=== PATIENT | female | born 1950 | race Caucasian/White ===

== ENCOUNTER → 2016-08-07 | Outpatient (CLI) | payer MEDICAID | LOC: WI 08:16 | PROVIDERS: ATTEND Internal Medicine | DX: Z12.31 Encounter for screening mammogram for malignant neoplasm of breast (principal) | CPT/HCPCS: 77067; G0202 ==

== ENCOUNTER 2016-10-18 03:22 | Observation (INO) | payer MEDICAID, MEDICARE ==
[2016-10-18 03:47] LABS: ABSOLUTE BASOPHILS # (AUTO) 0.1 10^3/uL (0.0-0.2); ABSOLUTE EOSINOPHILS # (AUTO) 0.2 10^3/uL (0.0-0.6); ABSOLUTE LYMPHOCYTES (AUTO) 2.9 10^3/uL (0.5-4.7); ABSOLUTE MONOCYTES (AUTO) 0.7 10^3/uL (0.1-1.4); ABSOLUTE NEUT (AUTO) 3.9 10^3/uL (1.7-8.2); BASOPHILS % (AUTO) 1.3 % (0-2); EOSINOPHILS % (AUTO) 2.8 % (0-6); HEMATOCRIT 40.6 % (36.0-47.0); HEMOGLOBIN 13.8 g/dL (12.0-15.5); HGB HCT DIFFERENCE 0.8; LYMPHOCYTES % (AUTO) 36.9 % (13-45); MEAN CORPUSCULAR HEMOGLOBIN 30.5 pg (27.0-33.4); MEAN CORPUSCULAR VOLUME 90 fl (80-97); MONOCYTES % (AUTO) 9.4 % (3-13); RED BLOOD COUNT 4.54 10^6/uL (3.72-5.28); RED CELL DISTRIBUTION WIDTH 14.5 % (11.5-14.0); SEGMENTED NEUTROPHILS % (AUTO) 49.6 % (42-78); WHITE BLOOD COUNT 7.8 10^3/uL (4.0-10.5)
--- NOTE | 2016-10-18 03:59 | ER Document Report ---
ED General - General Chief Complaint: Chest Pain Stated Complaint: CHEST PAIN Time Seen by Provider: 10/18/16 03:25 Notes: 66-year-old female with medication- Controlled hypertension presents with an episode of low back pain which began as she was walking back from rolling of her truck windows. This was about an hour ago. The back pain soon turned into chest pain, which was dull and central and was accompanied by weakness and heaviness in her left arm greater than leg. This lasted about 20 minutes. The chest pressure and back pain are now gone but her left arm and leg still feel "funny." She describes as heaviness but no numbness tingling. No headache nausea vomiting. No history of this in the past. Currently chest pain-free. she was brought in by EMS and given aspirin prior to arrival. TRAVEL OUTSIDE OF THE [place] IN LAST 30 DAYS: No Past Medical History - General Information source: Patient - Social History Smoking Status: Former Smoker Family History: Reviewed & Not Pertinent - Past Medical History Cardiac Medical History: Reports: Hx Hypertension Review of Systems - Review of Systems Notes: REVIEW OF SYSTEMS GEN: Denies fever, chills, weight loss ENT: Denies sore throat, nasal discharge, ear pain EYES: Denies blurry vision, eye pain, discharge CV: Chest pain RESP: Denies cough, shortness of breath, wheezing GI: Denies abdominal pain, nausea, vomiting, diarrhea MSK: Denies joint pain/swelling, edema, positive low back pain SKIN: Denies rash, skin lesions LYMPH: Denies swollen glands/lymph nodes NEURO: Denies headache, positive left arm and leg weakness PSYCH: Denies depression, suicidal or homicidal ideation PHYSICAL EXAMINATION General: No acute distress, well-nourished Head: Atraumatic, normocephalic ENT: Mouth normal, oropharynx moist, no exudates or tonsillar enlargement Eyes: Conjunctiva normal, pupils equal, lids normal Neck: No JVD, supple, no guarding CVS: Normal rate, regular rhythm, no murmurs Resp: No resp distress, equal and normal breath sounds bilaterally GI: Nondistended, soft, no tenderness to palpation, no rebound or guarding Ext: No deformities, no edema, normal range of motion in upper and lower ext Back: No CVA or midline TTP Skin: No rash, warm Lymphatic: No lymphadeopathy noted Neuro: Awake, alert. Face symmetric. GCS 15. Cranial nerves II through XII intact. No pronator drift. 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 Intact symmetric 5 out of 5 hip flexion, ankle plantar and dorsiflexion. Normal sensation in all 4 extremities. Physical Exam - Vital signs Vitals: Pulse Ox 100 10/18/16 03:29 Course - Re-evaluation Re-evalutation: 10/18/16 03:59 66-year-old female hypertensive former smoker presents with episode of back and chest pain now resolved accompanied by left arm and leg heaviness which she still feels, however I cannot "corroborate this on exam. Her stroke score is 0. She currently is chest pain-free and looks well with normal vitals. Differential for her issue most seriously would be an aortic dissection which I will rule out with CT. Secondarily acute coronary syndrome. Her EKG is nonischemic and unchanged from prior. I will send a troponin and consider a repeat. She will also receive a head CT. 10/18/16 04:43 On my read the CTs are normal and the labs have come back normal as well. The patient is still feeling slightly weak on the left. Her exam remains normal. 6 points Per the validation study, 6-7 points: High Risk 2-Day Stroke Risk: 8.1% 7-Day Stroke Risk: 11.7% 90-Day Stroke Risk: 17.8% Given her high TIA score and risk of future stroke, I would like to admit her to the hospital for further workup. 10/18/16 05:10 Still feeling slightly weak but exam is normal. CT is already negative. Discussed with Dr. Lanier who will admit. - Vital Signs Vital signs: Temp Pulse Resp BP Pulse Ox 98 F 75 15 152/79 H 99 10/18/16 03:41 10/18/16 03:41 10/18/16 04:01 10/18/16 04:01 10/18/16 04:33 - Laboratory Result Diagrams: 10/18/16 03:37 10/18/16 03:37 Laboratory results interpreted by me: 10/18/16 10/18/16 03:37 03:37 RDW 14.5 H Potassium 3.5 L Chloride 108 H - Diagnostic Test Radiology reviewed: Image reviewed, Reports reviewed - EKG Interpretation by Me EKG shows normal: Sinus rhythm When compared to previous EKG there are: No significant change - No significant ST or Twave changes Discharge - Discharge Clinical Impression: Left-sided weakness Chest pain, unspecified Qualifiers: Chest pain type: unspecified Qualified Code(s): R07.9 - Chest pain, unspecified Admitting Provider: Hospitalist Unit Admitted: IMCU Referrals: HEMANTH AL MD [Primary Care Provider] - Follow up as needed
[2016-10-18 04:02] LABS: ANION GAP 13 (5-19); BLOOD UREA NITROGEN 16 mg/dL (7-20); CALCIUM 9.6 mg/dL (8.4-10.2); CARBON DIOXIDE 23 mmol/L (22-30); CHLORIDE 108 mmol/L (98-107); CREATININE RESULT 0.63 mg/dL (0.52-1.25); GLUCOSE 95 mg/dL (75-110); POTASSIUM 3.5 mmol/L (3.6-5.0); SODIUM 143.7 mmol/L (137-145)
--- NOTE | 2016-10-18 04:51 | RADIOLOGY REPORT (SQ) ---
EXAM DESCRIPTION: CTA CHEST COMPLETED DATE/TIME: 10/18/2016 4:29 am REASON FOR STUDY: CP L arm pn, r/o dissection COMPARISON: CR, chest, 08/16/2014. TECHNIQUE: CT scan of the chest performed using helical scanning technique with dynamic intravenous contrast injection. Images reviewed with lung, soft tissue and bone windows. Reconstructed coronal and sagittal MPR images reviewed. Additional 3 dimensional post-processing performed to develop Maximal Intensity Projection images (HI P). All images stored on PACS. All CT scanners at this facility use dose modulation, iterative reconstruction, and/or weight based d osing when appropriate to reduce radiation dose to as low as reasonably achievable (ALARA). [facility]: Dose Right [facility]: CareDose [facility]: Dose Right [facility]: Teradose 4D [facility]: [employer] CONTRAST TYPE AND DOSE: 100 cc 5 Isovue 370. RENAL FUNCTION: Creatinine 0.6. RADIATION DOSE: 883 LIMITATIONS: None. FINDINGS: LUNGS AND PLEURA: Prominent interstitium. AORTA AND GREAT VESSELS: No aneurysm or dissection. Atherosclerosis. HEART: No pericardial effusion. PULMONARY ARTERIES: No emboli visualized in the main pulmonary arteries or the segmental branches. HILAR AND MEDIASTINAL STRUCTURES: No identified masses or abnormal nodes. HARDWARE: None in the chest. UPPER ABDOMEN: See separate report of the CT of the abdomen. THYROID AND OTHER SOFT TISSUES: No masses. No adenopathy. BONES: No acute or significant finding. 3D MIPS: Confirm above findings. OTHER: No other significant finding. IMPRESSION: No acute cardiopulmonary findings. NO PULMONARY EMBOLI. No CTA evidence of aortic diss ection or aneurysm, as queried. TECHNICAL DOCUMENTATION: JOB ID: [id number] Quality ID # 436: Final reports with documentation of one or more dose reduction techniques (e.g., Au tomated exposure control, adjustment of the mA and/or kV according to patient size, use of iterative reconstruction technique) 2010 [employer]- All Rights Reserved
--- NOTE | 2016-10-18 04:55 | RADIOLOGY REPORT (SQ) ---
EXAM DESCRIPTION: CTA ABDOMEN/PELVIS W WO COMPLETED DATE/TIME: 10/18/2016 4:29 am REASON FOR STUDY: r/o dissection COMPARISON: None. TECHNIQUE: CT scan of the abdominal aorta extending to the iliac bifurcation performed with and with out intravenous contrast using helical scanning technique with dynamic intravenous contrast injection . Images reviewed with lung, soft tissue, and bone windows. Reconstructed coronal and sagittal MPR im ages reviewed. All images stored on PACS. Advanced 3D imaging as volume rendering, MIPS, SSD performed? yes All CT scanners at this facility use dose modulation, iterative reconstruction, and/or weight based d osing when appropriate to reduce radiation dose to as low as reasonably achievable (ALARA). [facility]: Dose Right [facility]: CareDose [facility]: Dose Right [facility]: Teradose 4D [facility]: [employer] CONTRAST TYPE AND DOSE: contrast/concentration: Isovue 370.00 mg/ml; Total Contrast Delivered: 100.0 ml; Total Saline Delivered: 90.0 ml RENAL FUNCTION: Creatinine 0.6. LIMITATIONS: None. FINDINGS: NON-CONTRASTED IMAGING: No significant renal or bladder calcifications. No other significa nt organ calcifications. POST-CONTRAST IMAGING: AORTA AND VESSELS: No aneurysm. No dissection. Renal arteries, SMA, celiac without stenosis. Mild at herosclerosis. LUNG BASES: No significant findings. No nodules or infiltrates. LIVER: Normal size. No masses or dilated ducts. SPLEEN: Normal size. No focal lesions. PANCREAS: No masses. No significant calcifications. No adjacent inflammation or peripancreatic fluid collections. Pancreatic duct not dilated. GALLBLADDER: No identified stones by CT criteria. No inflammatory changes to suggest cholecystitis. ADRENAL GLANDS: No significant masses or asymmetry. RIGHT KIDNEY AND URETER: No mass, calculi or urinary tract obstruction. LEFT KIDNEY AND URETER: No mass, calculi or urinary tract obstruction. RETROPERITONEUM: No retroperitoneal adenopathy, hemorrhage or masses. BOWEL AND PERITONEAL CAVITY: No masses or inflammatory changes. No free fluid or peritoneal masses. APPENDIX: Normal. ABDOMINAL WALL: No masses. No hernias. BONY STRUCTURES: No significant or acute findings. Moderate disc desiccation. 3-D IMAGING: Confirms the above findings. OTHER: No other significant finding. IMPRESSION: NO ABDOMINAL AORTIC ANEURYSM, DISSECTION OR SIGNIFICANT STENOSIS. NO SIGNIFICANT FINDING S IN THE ABDOMEN. TECHNICAL DOCUMENTATION: JOB ID: [id number] Quality ID # 436: Final reports with documentation of one or more dose reduction techniques (e.g., Au tomated exposure control, adjustment of the mA and/or kV according to patient size, use of iterative reconstruction technique) 2010 [employer]- All Rights Reserved
--- NOTE | 2016-10-18 04:57 | RADIOLOGY REPORT (SQ) ---
EXAM DESCRIPTION: CT HEAD WITHOUT COMPLETED DATE/TIME: 10/18/2016 4:29 am REASON FOR STUDY: Left arm greater than leg weakness COMPARISON: None. TECHNIQUE: Axial images acquired through the brain without intravenous contrast. Images reviewed wi th bone, brain and subdural windows. Images stored on PACS. All CT scanners at this facility use dose modulation, iterative reconstruction, and/or weight based d osing when appropriate to reduce radiation dose to as low as reasonably achievable (ALARA). [facility]: Dose Right [facility]: CareDose [facility]: Dose Right [facility]: Teradose 4D [facility]: [employer] RADIATION DOSE: Up-to-date CT equipment and radiation dose reduction techniques were employed. CTDIv ol: 64.6 mGy. DLP: 1163 mGy-cm. mGy. LIMITATIONS: None. FINDINGS: VENTRICLES: Normal size and contour. CEREBRUM: No masses. No hemorrhage. No midline shift. Normal reyna/white matter differentiation. N o evidence for acute infarction. CEREBELLUM: No masses. No hemorrhage. No alteration of density. No evidence for acute infarction. EXTRAAXIAL SPACES: No fluid collections. No masses. ORBITS AND GLOBE: No intra- or extraconal masses. Normal contour of globe without masses. CALVARIUM: No fracture. PARANASAL SINUSES: Moderate right sphenoid mucosal thickening. SOFT TISSUES: No mass or hematoma. OTHER: No other significant finding. IMPRESSION: Moderate right maxillary mucosal thickening. Otherwise unremarkable CT of the head. TECHNICAL DOCUMENTATION: JOB ID: [id number] Quality ID # 436: Final reports with documentation of one or more dose reduction techniques (e.g., Au tomated exposure control, adjustment of the mA and/or kV according to patient size, use of iterative reconstruction technique) 2010 [employer]- All Rights Reserved
--- NOTE | 2016-10-18 04:58 | RADIOLOGY REPORT (SQ) ---
EXAM DESCRIPTION: CHEST SINGLE VIEW COMPLETED DATE/TIME: 10/18/2016 4:34 am REASON FOR STUDY: cp COMPARISON: 08/16/2014. EXAM PARAMETERS: NUMBER OF VIEWS: One view. TECHNIQUE: Single frontal radiographic view of the chest acquired. RADIATION DOSE: NA LIMITATIONS: None. FINDINGS: LUNGS AND PLEURA: Mild chronic interstitial markings. MEDIASTINUM AND HILAR STRUCTURES: No masses. Contour normal. HEART AND VASCULAR STRUCTURES: Heart normal in size. Normal vasculature. BONES: No acute findings. HARDWARE: None in the chest. OTHER: No other significant finding. IMPRESSION: No acute cardiopulmonary findings. TECHNICAL DOCUMENTATION: JOB ID: [id number]
[2016-10-18 05:15] LABS: ADD ON TESTING BLD IN LAB ACKNOWLEDGE
[2016-10-18 05:23] LABS: PROTHROMBIN TIME 12.2 SEC (11.4-15.4)
[2016-10-18 05:24] LABS: PARTIAL THROMBOPLASTIN TIME 25.5 SEC (23.5-35.8)
[2016-10-18 05:29] LABS: ALANINE AMINOTRANSFERASE 25 U/L (9-52); ALBUMIN 4.2 g/dL (3.5-5.0); ALKALINE PHOSPHATASE 156 U/L (38-126); ASPARTATE AMINO TRANSFERASE 26 U/L (14-36); BILIRUBIN,DIRECT 0.3 mg/dL (0.0-0.4); BILIRUBIN,TOTAL 0.5 mg/dL (0.2-1.3); MAGNESIUM 1.9 mg/dL (1.6-2.3); TOTAL PROTEIN 7.5 g/dL (6.3-8.2)
[2016-10-18 05:30] LABS: ALCOHOL < 10 mg/dL (NONE DETECTED)
[2016-10-18 05:40] LABS: APPEARANCE,URINE CLEAR; BILIRUBIN,URINE NEGATIVE (NEGATIVE); GLUCOSE, URINE NEGATIVE (NEGATIVE); KETONES,URINE NEGATIVE (NEGATIVE); LEUKOCYTE ESTERASE,URINE NEGATIVE (NEGATIVE); NITRITE,URINE NEGATIVE (NEGATIVE); PROTEIN,URINE NEGATIVE (NEGATIVE); URINE SPECIFIC GRAVITY 1.003; UROBILINOGEN,URINE NEGATIVE mg/dL (<2.0)
[2016-10-18] MEDS ORDERED: ACETAMINOPHEN 325 MG TABLET PO PRN (06:12)
[2016-10-18] MEDS ORDERED: MAGNESIUM HYDROXIDE SUSP 30 ML UDCUP PO PRN (06:12)
[2016-10-18] MEDS ORDERED: PROMETHAZINE HCL 25 MG TABLET PO PRN (06:20)
[2016-10-18 06:23] LABS: ADD ON TESTING BLD IN LAB ACKNOWLEDGE
[2016-10-18] MEDS ORDERED: POTASSI CL 20 MEQ/50 ML RIDER 20 MEQ/50 ML RTUPB IV ONE (06:30)
[2016-10-18 06:39] LABS: CHOLESTEROL 144.92 mg/dL (0-200); Direct HDL 47 mg/dL (>40); TRIGLYCERIDES 233 mg/dL (<150)
--- NOTE | 2016-10-18 06:40 | PDOC H&P ---
History of Present Illness Admission Date/PCP: 10/18/16 05:25 HEMANTH AL food and nutrition professor Dr. johansen Patient complains of: Chest and lower back pain, left-sided numbness, weakness History of Present Illness: KATHARINE WORTHINGTON is a 66 year old female with underlying hypertension, hypothyroidism, mild hearing loss, arthritis, and mild anxiety and depression, without suicidal or homicidal ideation, who presents to the emergency room for evaluation of above complaints. Patient has been discussed with emergency room physician who evaluated the patient. Patient had seen a friend of hers earlier in the evening, having 2 alcoholic drinks. She did come home, fed her cats, and fell asleep on the couch. Was apparently awoken by phone call from a friend, stating that her truck windows were rolled down. She went outside and rolled up her truck windows, approximately an hour prior to presentation to the emergency room, and as she was walking back into the house, she developed lower back pain, which changed into dull central chest pain , with associated weakness and heaviness in her left arm and leg, arm greater than leg. This lasted about 20 minutes. Back pressure and chest pain resolved but she was still complaining of left arm and leg feeling "funny." Attempted to drive to the emergency room, but approximately snf there, the chest pain and back pain recurred. Stated that she felt like her heart was going to "beat out of my chest." She pulled over on the side of the road and called EMS. By the time she arrived in the emergency room, the chest and back pain had resolved and have not recurred. Still complaining of some slight numbness tingling and heaviness of her left upper and lower extremities. For the last 2 weeks, she has had occasional chest discomfort and palpitations. No prior such neurologic symptoms. Prior to this evening's events, no specific complaints including headache, chest or abdominal pain, nausea vomiting, fever chills, diarrhea or dysuria. Currently resting quietly, chest and back pain-free, but with still a slight "funny" sensation involving her left extremities. Dictation via voice recognition software. Laboratory results are listed in [employer] and are reviewed. X-ray summary results are listed below, with full report(s) reviewed. . EKG reviewed and compared to prior tracing from November [id number]. Social history/personal habits: Recently . Has an adult daughter. 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 Has never smoked. Occasional alcoholic drink. No illicit drug use. Allergies/adverse reactions are listed in [employer] and are reviewed. Home medications initially autopopulated into [facility] may not accurately reflect patient's true medications, dosages, and/or frequencies. photonics technician to reconcile medications. Unfortunately, patient not certain of all medications/dosages/frequencies. REVIEW OF SYSTEMS: Constitutional: No fever or chills. Eyes: Wears glasses. ENT: No swallowing problems or complaints. Partial hearing loss. Pulmonary: No current complaints. Cardiovascular: See history and present illness. Gastrointestinal: No current complaints, including nausea or vomiting. Skin: No current complaints, including rashes. Hematologic: Easy bruising. Neurologic: See history and present illness. Musculoskeletal: Intermittent joint pain from arthritis. See history and present illness. Psychiatric: Mild anxiety and depression. Denies suicidal or homicidal ideation. Endocrine: No current complaints, including polyuria. Genitourinary: No current complaints, including dysuria. PHYSICAL EXAMINATION: Female emergency room nurse Beulah is present. 5 feet 4 inches tall. 68.4 kg. BMI 25.9 kg/m. Blood pressure 137/93. Pulse 66 and regular. 99% saturation on room air. Respirations are 12 and unlabored. Temperature 98.2. Slightly overweight otherwise well-nourished well-developed though somewhat chronically ill-appearing female who appears a bit older than her stated age. Pleasant awake alert and cooperative. No obvious distress other than somewhat anxious. Skin is warm and dry. No grossly obvious evidence of rash in areas of skin examined. No subcutaneous nodules palpated. ENT: Hearing grossly normal to normal conversation. Tongue midline on protrusion pink and slightly tacky. Eyes: No scleral icterus. Pupils equal and reactive to light at 4 mm. [place] conjunctivae. Neck is supple and nontender to gentle active range of motion and palpation. Midline trachea. No palpable thyroid nodule mass enlargement or tenderness. Lymphatic: No palpable cervical or clavicular nodes. Neck and lymphatic exams limited by patient body habitus. Psychiatric: Reasonable insight into acute and chronic medical issues. Oriented to time location and why here. Lungs: Auscultation reveals clear and equal breath sounds bilaterally. No use of accessory respiratory muscles. Cardiovascular: Heart regular rate and rhythm, without gallop murmur or rub. No carotid or abdominal aortic bruits. No ankle or pedal edema. Faintly palpable dorsalis pedis pulses. Abdomen:soft slightly distended nontender with positive bowel sounds. Unable to adequately evaluate abdomen for masses or organomegaly due to distention. Extremities: Hands and feet are warm and dry. No calf tenderness to compression. No grossly obvious visual evidence of calf swelling. Gentle manipulation of upper and lower extremities fails to reveal any obvious evidence of injury or instability of involved major joints. Neurologic: Cranial Nerves II through XII are grossly intact. Light touch intact at face, right upper and lower extremities. Slight decreased light touch sensation, left upper and lower extremities. Motor function of major muscle groups right upper and lower extremities 5 over 5. 4/5 on the left upper and lower extremities. Patellar reflexes absent. Absent Babinski. No nystagmus. Past Medical History Cardiac Medical History: Reports: Hypertension Denies: Atrial Fibrillation, Congestive Heart Failure, Coronary Artery Disease, DVT, Myocardial Infarction, Hyperlipidema, Pulmonary Embolism Pulmonary Medical History: Denies: Asthma, Chronic Obstructive Pulmonary Disease (COPD), Sleep Apnea EENT Medical History: Reports: Eyes - Glasses, Ears - Partial hearing loss Denies: Throat Neurological Medical History: Denies: Hemorrhagic CVA, Ischemic CVA, Seizures Endocrine Medical History: Reports: Hypothyroidism Denies: Diabetes Mellitus Type 1, Diabetes Mellitus Type 2, Hyperthyroidism Renal/ Medical History: Reports: None GI Medical History: Reports: Other - "Stomach problems all my life" Denies: Cirrhosis, Gastroesophageal Reflux Disease, Hepatitis, Peptic Ulcer Disease Musculoskeltal Medical History: Reports: Arthritis Skin Medical History: Reports: None Psychiatric Medical History: Reports: Depression, General Anxiety Disorder Denies: Alcohol Dependency, Substance Abuse, Tobacco Dependency Hematology: Reports: Other - Easy bruising Infectious Medical History: Denies: Hepatitis B, Hepatitis C Past Surgical History Past Surgical History: Reports: Appendectomy, Cholecystectomy, Hysterectomy, Other - Laparoscopy 2. Social History Information Source: Patient, Emergency Med Personnel, [facility] Records Smoking Status: Never Smoker Frequency of Alcohol Use: Occasional Drugs: None - Advance Directive Resuscitation Status: Full Code Surrogate healthcare decision maker:: Erika Bautista Family History Family History: Reviewed & Not Pertinent Parental Family History Reviewed: Yes - Mother of stroke; father of lung cancer Children Family History Reviewed: Yes - Son with "many health problems " Sibling(s) Family History Reviewed.: Yes - Brother with drug problems Medication/Allergy Home Medications: Cholecalciferol (Vitamin D3) [Vitamin D3 2000 unit Tablet] 2,000 unit PO DAILY 10/18/16 Cyanocobalamin (Vitamin B-12) [Vitamin B-12] 500 mcg PO DAILY 10/18/16 Fluoxetine HCl 20 mg PO DAILY 10/18/16 Losartan/Hydrochlorothiazide [Hyzaar 100-25 Tablet] 1 each PO DAILY 10/18/16 Pantoprazole Sodium 40 mg PO DAILY 10/18/16 Aspirin [Ecotrin 325 mg EC Tablet] 325 mg PO DAILY tabec 10/19/16 Atorvastatin Calcium [Lipitor 80 mg Tablet] 40 mg PO DAILY #30 tablet 10/19/16 Levothyroxine Sodium [Synthroid 0.025 mg Tablet] 50 mcg PO DAILY #60 tablet Nifedipine [Nifedipine ER] 30 mg PO DAILY #30 tab.er.24 10/19/16 Allergies/Adverse Reactions: butorphanol [From Stadol] Allergy (Verified 10/18/16 06:18) nalbuphine [From Nubain] Allergy (Verified 10/18/16 06:18) Physical Exam Vital Signs: Temp Pulse Resp BP Pulse Ox 98.2 F 66 18 129/86 H 97 10/18/16 05:59 10/18/16 05:59 10/18/16 05:59 10/18/16 05:59 10/18/16 05:59 Results Impressions: Chest X-Ray 10/18/16 03:25 IMPRESSION: No acute cardiopulmonary findings. Abdomen/Pelvis CTA 10/18/16 03:34 IMPRESSION: NO ABDOMINAL AORTIC ANEURYSM, DISSECTION OR SIGNIFICANT STENOSIS. NO SIGNIFICANT FINDINGS IN THE ABDOMEN. Chest/Abdomen CTA 10/18/16 03:34 IMPRESSION: No acute cardiopulmonary findings. NO PULMONARY EMBOLI. No CTA evidence of aortic dissection or aneurysm, as queried. Head CT 10/18/16 03:59 IMPRESSION: Moderate right maxillary mucosal thickening. Otherwise unremarkable CT of the head. Assessment & Plan - Diagnosis (1) Acute focal neurological deficit Is this a current diagnosis for this admission?: YesPlan: Patient will be placed in observation bed admitted under CVA/TIA protocol. Multiple imaging procedures, intracranial, vascular, and cardiac. lipid panel. Permissive hypertension. Patient is a full code. I have strongly urged patient not to get out of bed without calling nursing staff, to avoid a fall with injury. Knee high SCDs for DVT prophylaxis, along with subcutaneous Lovenox. Impression and plans were discussed with patient, who concurs. Time spent in evaluation and management of patient: 68 minutes (2) Arm paresthesia, left Is this a current diagnosis for this admission?: Yes (3) Chest pain, unspecified Qualifiers: Chest pain type: unspecified Qualified Code(s): R07.9 - Chest pain, unspecified Is this a current diagnosis for this admission?: YesPlan: No outward evidence of acute coronary syndrome, but will trend troponins. Repeat EKG. (4) Hypokalemia Is this a current diagnosis for this admission?: YesPlan: Potassium replacement (5) Left hemiparesis Is this a current diagnosis for this admission?: Yes (6) Left leg paresthesias Is this a current diagnosis for this admission?: Yes (7) HTN (hypertension) Qualifiers: Hypertension type: essential hypertension Qualified Code(s): I10 - Essential (primary) hypertension Is this a current diagnosis for this admission?: YesPlan: Permissive hypertension (8) Hypothyroid Qualifiers: Hypothyroidism type: unspecified Qualified Code(s): E03.9 - Hypothyroidism, unspecified Is this a current diagnosis for this admission?: YesPlan: Resume home medications as appropriate once these have been determined and reviewed. - Time Time Spent: 50 to 70 Minutes Anticipated discharge: Home Within: within 48 hours
[2016-10-18 06:49] LABS: DIRECT LDL 44 mg/dL (<100)
[2016-10-18 06:51] LABS: VLDL CHOLESTEROL 46.6 mg/dL (10-31)
[2016-10-18] MEDS: ATORVASTATIN CALCIUM 80 MG TABLET PO SCH (11:57)
[2016-10-18] MEDS: DOCUSATE SODIUM 100 MG CAPSULE PO SCH ×2 (11:58→17:32)
[2016-10-18] MEDS: ENOXAPARIN SODIUM INJ 40 MG/0.4 ML DISP.SYRIN SUBCUT SCH (11:59)
[2016-10-18] MEDS: ASPIRIN 325 MG TABLET, ENT COATED PO SCH (11:59)
[2016-10-18] MEDS: POTASSI CL 20 MEQ/NS 1L 1,000 ML IV PRN (12:00)
--- NOTE | 2016-10-18 12:15 | RADIOLOGY REPORT (SQ) ---
EXAM DESCRIPTION: MRI HEAD WITHOUT COMPLETED DATE/TIME: 10/18/2016 11:47 am REASON FOR STUDY: tia vs cva E03.9 HYPOTHYROIDISM, UNSPECIFIED COMPARISON: None. TECHNIQUE: Multiplanar imaging includes non-contrasted T1, T2, FLAIR, and diffusion with ADC map seq uences. Images stored on PACS. LIMITATIONS: None. FINDINGS: ANATOMY: No anomalies. Normal vascular flow voids. Pituitary fossa normal. CSF SPACES: Normal in size and contour. No hemorrhage. CEREBRUM: Sulci and gyri normal in size and contour. Normal white matter signal on FLAIR imaging. No evidence of hemorrhage, mass, or extraaxial fluid collection. POSTERIOR FOSSA: No signal alteration. No hemorrhage. No edema, masses or mass effect. Internal iron tory canals, cerebello-pontine angles, mastoids normal. DIFFUSION IMAGING: Negative for acute or sub-acute infarction. ORBITS: No masses. Globes normal. PARANASAL SINUSES: Mucosal thickening right sphenoid sinus. OTHER: No other significant finding. IMPRESSION: Normal brain. EVIDENCE OF ACUTE STROKE: NO. TECHNICAL DOCUMENTATION: JOB ID: [id number] [employer]- All Rights Reserved
--- NOTE | 2016-10-18 12:17 | RADIOLOGY REPORT (SQ) ---
EXAM DESCRIPTION: MRA HEAD WITHOUT COMPLETED DATE/TIME: 10/18/2016 11:47 am REASON FOR STUDY: tia vs cva E03.9 HYPOTHYROIDISM, UNSPECIFIED COMPARISON: None. TECHNIQUE: Axial 3-D [id number]-[id number] acquisition imaging performed through the brain in the area of t he [place]. Images reformatted using 3-D MIPS. LIMITATIONS: None. FINDINGS: SOURCE IMAGES: No unexpected findings on source images. No large masses. 3-D MIP: No aneurysm. No occlusions. No significant stenosis. OTHER: No other significant finding. IMPRESSION: NORMAL MRA OF THE [place]. TECHNICAL DOCUMENTATION: JOB ID: [id number] [employer]- All Rights Reserved
--- NOTE | 2016-10-18 12:48 | RADIOLOGY REPORT (SQ) ---
EXAM DESCRIPTION: CAROTID DOPPLER COMPLETED DATE/TIME: 10/18/2016 12:39 pm REASON FOR STUDY: tia vs cva E03.9 HYPOTHYROIDISM, UNSPECIFIED COMPARISON: None. TECHNIQUE: Grayscale ultrasound, Doppler velocity and spectra, and color Doppler images acquired of the extra-cranial carotid and vertebral arteries. Images stored on PACS. LIMITATIONS: None. FINDINGS: RIGHT CAROTID CCA Velocities: Within normal limits. ICA Velocities Peak systolic 1.23 m/s. End diastolic 0.40 m/s. Proximal ICA/CCA peak systolic ratio 1.6. Spectra normal. No significant plaque. LEFT CAROTID CCA Velocities: Within normal limits. ICA Velocities Peak systolic 1.20 m/s. End diastolic 0.47 m/s. Proximal ICA/CCA peak systolic ratio 2.0. Spectra normal. No significant plaque. VERTEBRAL ARTERIES: Antegrade flow. Normal waveforms. SUBCLAVIAN ARTERIES: Not imaged. OTHER: No other significant finding. IMPRESSION: Less than 50% stenosis bilaterally. COMMENT: Quality ID #[id number]: Velocity criteria are extrapolated from the diameter data as defined by t he Society of Radiologists in Ultrasound Consensus Conference. Radiology 2003: 229; 340-346. TECHNICAL DOCUMENTATION: JOB ID: [id number] [employer]- All Rights Reserved
--- NOTE | 2016-10-18 15:19 | EKG REPORT ---
SEVERITY:- ABNORMAL ECG - SINUS RHYTHM LVH WITH SECONDARY REPOLARIZATION ABNORMALITY : Confirmed by: Annmarie Blanco MD 18-Oct-2016 15:19:02
[2016-10-19] MEDS: POTASSI CL 20 MEQ/NS 1L 1,000 ML IV PRN (01:41)
[2016-10-19 06:30] LABS: ANION GAP 6 (5-19); BLOOD UREA NITROGEN 13 mg/dL (7-20); CALCIUM 8.4 mg/dL (8.4-10.2); CARBON DIOXIDE 24 mmol/L (22-30); CHLORIDE 112 mmol/L (98-107); GLUCOSE 93 mg/dL (75-110); POTASSIUM 4.4 mmol/L (3.6-5.0); SODIUM 141.5 mmol/L (137-145)
[2016-10-19] MEDS: ATORVASTATIN CALCIUM 80 MG TABLET PO SCH (10:55)
[2016-10-19] MEDS: DOCUSATE SODIUM 100 MG CAPSULE PO SCH (10:55)
[2016-10-19] MEDS: ASPIRIN 325 MG TABLET, ENT COATED PO SCH (10:55)
[2016-10-19] MEDS: ENOXAPARIN SODIUM INJ 40 MG/0.4 ML DISP.SYRIN SUBCUT SCH (10:55)
--- NOTE | 2016-10-19 11:14 | EKG REPORT ---
SEVERITY:- ABNORMAL ECG - SINUS RHYTHM NONSPECIFIC T ABNORMALITIES, LATERAL LEADS : Confirmed by: Annmarie Blanco MD 19-Oct-2016 11:14:12
[2016-10-19 11:16] VITALS: BP 164/99
--- NOTE | 2016-10-19 15:12 | PDOC DISCHARGE SUMMARY ---
General - Admit/Disc Date/PCP Admission Date/Primary Care Provider: 10/18/16 06:12 HEMANTH AL Discharge Date: 10/19/16 - Discharge Diagnosis (1) TIA (transient ischemic attack) Is this a current diagnosis for this admission?: Yes (2) Chest pain, unspecified Is this a current diagnosis for this admission?: Yes (3) HTN (hypertension) Is this a current diagnosis for this admission?: Yes (4) Hypothyroid Is this a current diagnosis for this admission?: Yes (5) Dyslipidemia Is this a current diagnosis for this admission?: Yes - Additional Information Resuscitation Status: Full Code Discharge Diet: Cardiac Discharge Activity: Activity As Tolerated, Balance Activity w/Rest Home Medications: Cholecalciferol (Vitamin D3) [Vitamin D3 2000 unit Tablet] 2,000 unit PO DAILY 10/18/16 Cyanocobalamin (Vitamin B-12) [Vitamin B-12] 500 mcg PO DAILY 10/18/16 Fluoxetine HCl 20 mg PO DAILY 10/18/16 Losartan/Hydrochlorothiazide [Hyzaar 100-25 Tablet] 1 each PO DAILY 10/18/16 Pantoprazole Sodium 40 mg PO DAILY 10/18/16 Aspirin [Ecotrin 325 mg EC Tablet] 325 mg PO DAILY tabec 10/19/16 Atorvastatin Calcium [Lipitor 80 mg Tablet] 40 mg PO DAILY #30 tablet 10/19/16 Levothyroxine Sodium [Synthroid 0.025 mg Tablet] 50 mcg PO DAILY #60 tablet Nifedipine [Nifedipine ER] 30 mg PO DAILY #30 tab.er.24 10/19/16 Additional Information: Stress test as outpatient with primary care physician or Dr. Thompson History of Present Illness Patient complains of: Chest pain and numbness on LUE/LLE History of Present Illness: KATHARINE WORTHINGTON is a 66 year old female with underlying hypertension, hypothyroidism, mild hearing loss, arthritis, and mild anxiety and depression, without suicidal or homicidal ideation, who presents to the emergency room for evaluation of above complaints. Patient has been discussed with emergency room physician who evaluated the patient. Patient had seen a friend of hers earlier in the evening, having 2 alcoholic drinks. She did come home, felt her calves, and fell asleep on the couch. Was apparently awoken by phone call from a friend, stating that her truck windows were rolled down. She went outside and rolled off her truck when this, approximately an hour prior to presentation to the emergency room, and as she was walking back into the house, she developed lower back pain, which changed into dull central chest pain, with associated weakness and heaviness in her left arm and leg, arm greater than leg. This lasted about 20 minutes. Back pressure and chest pain resolved but she was still complaining of left arm and leg feeling "funny." Attempted to drive to the emergency room, but approximately skilled nursing, the chest pain and back pain recurred. Stated that she felt like her heart was going to "beat out of my chest." She pulled over on the side of the road and called EMS. By the time she arrived in the emergency room, the chest and back pain had resolved and had not recurred. Still complaining of some slight numbness tingling and heaviness of her left upper and lower extremities. For the last 2 weeks, she has had occasional chest discomfort and palpitations. No prior such neurologic symptoms. Prior to this evening's events, no specific complaints including headache, chest or abdominal pain, nausea vomiting, fever chills, diarrhea or dysuria. Currently resting quietly, chest and back pain-free, but was still a slight "funny" sensation involving her left extremities. Dictation via voice recognition software. Laboratory results are listed in [employer] and are reviewed. X-ray summary results are listed below, with full report(s) reviewed. . EKG reviewed and compared to prior tracing from November [id number]. Hospital Course Hospital Course: The patient was admitted to telemetry. Patient had initial CT scan of the brain which did not reveal any acute abnormality other than sinus mucosal thickening. Patient had an abdominal CT in the chest CT showing no embolism or dissection. Patient continues to have the numbness on the left upper extremity and left lower extremity but the chest pain resolved. Patient was patient was placed on antiplatelet therapy. Lipid panel was obtained and noted elevated triglycerides. Patient was started on Lipitor. Eventually she underwent carotid Doppler showing less than 50% stenosis bilaterally. Patient also had MRI of the brain which did not reveal any stroke, MRA of the [place] that was negative. The patient's symptoms eventually resolved. Patient reports no intense headache prior to the symptoms. Likely patient have underlying TIA therefore was advised for antiplatelet therapy with aspirin. In terms of the patient's chest pain cardiac enzymes were negative for myocardial infarction. Patient was advised to have a stress test done on an outpatient basis with primary care physician or Dr. Thompson. Physical Exam Vital Signs: Temp Pulse Resp BP Pulse Ox 98.8 F 59 L 14 164/99 H 100 10/19/16 11:13 10/19/16 12:00 10/19/16 12:00 10/19/16 12:00 10/19/16 12:00 Intake & Output 10/18/16 10/19/16 10/20/16 06:59 06:59 06:59 Intake Total 3656 Output Total 2500 Balance 1156 General appearance: PRESENT: no acute distress, cooperative Head exam: PRESENT: normocephalic Eye exam: PRESENT: EOMI Mouth exam: PRESENT: moist, neck supple Neck exam: ABSENT: JVD Respiratory exam: PRESENT: clear to auscultation vaughn, unlabored. ABSENT: rhonchi, wheezes Cardiovascular exam: PRESENT: RRR. ABSENT: gallop GI/Abdominal exam: PRESENT: diminished bowel sounds, soft. ABSENT: tenderness Extremities exam: ABSENT: pedal edema Neurological exam: PRESENT: alert, awake, oriented to person, oriented to place , oriented to time, oriented to situation Skin exam: PRESENT: dry, warm. ABSENT: cyanosis Results Laboratory Results: 10/19/16 05:54 10/19/16 05:54 Sodium 141.5 Potassium 4.4 Chloride 112 H Carbon Dioxide 24 Anion Gap 6 BUN 13 Creatinine 0.60 Est GFR ( Amer) > 60 Est GFR (Non-Af Amer) > 60 Glucose 93 Calcium 8.4 10/18/16 10/18/16 09:40 15:45 Troponin I < 0.012 < 0.012 Impressions: Head MRI 10/18/16 00:00 IMPRESSION: Normal brain. EVIDENCE OF ACUTE STROKE: NO. Chest X-Ray 10/18/16 03:25 IMPRESSION: No acute cardiopulmonary findings. Abdomen/Pelvis CTA 10/18/16 03:34 IMPRESSION: NO ABDOMINAL AORTIC ANEURYSM, DISSECTION OR SIGNIFICANT STENOSIS. NO SIGNIFICANT FINDINGS IN THE ABDOMEN. Chest/Abdomen CTA 10/18/16 03:34 IMPRESSION: No acute cardiopulmonary findings. NO PULMONARY EMBOLI. No CTA evidence of aortic dissection or aneurysm, as queried. Head CT 10/18/16 03:59 IMPRESSION: Moderate right maxillary mucosal thickening. Otherwise unremarkable CT of the head. Brain MRI with MRA 10/18/16 06:18 IMPRESSION: NORMAL MRA OF [place]. Carotid Doppler Study 10/18/16 06:18 IMPRESSION: Less than 50% stenosis bilaterally. Qualifiers PATEINT BEING DISCHARGED WITH ANY OF THE FOLLOWING DIAGNOSIS?: No Plan Discharge Plan: Follow up w/ primary physician in 1 week. Time Spent: Less than 30 Minutes
== END 2016-10-19 13:25 | disposition home or self-care (01) ==
LOC: ER 03:22 → UNDOADMIN 05:25 → EH 05:25 → INTOOBSV 06:12 → 3S 06:15 → EH 06:15
PROVIDERS: ADMIT Family Medicine; ATTEND Family Medicine
DX: G45.9 Transient cerebral ischemic attack, unspecified (principal); R07.89 Other chest pain; I10 Essential (primary) hypertension; E03.9 Hypothyroidism, unspecified; E78.5 Hyperlipidemia, unspecified; E87.6 Hypokalemia; I65.23 Occlusion and stenosis of bilateral carotid arteries; M19.90 Unspecified osteoarthritis, unspecified site; H91.90 Unspecified hearing loss, unspecified ear; Z79.899 Other long term (current) drug therapy; Z79.82 Long term (current) use of aspirin; Z90.49 Acquired absence of other specified parts of digestive tract; Z82.3 Family history of stroke; Z80.1 Family history of malignant neoplasm of trachea, bronchus and lung; Z87.891 Personal history of nicotine dependence
CPT/HCPCS: 93005 ×2; 99285; 36415 ×2; 84439; 80307; 83735; 84443; 85025; 85610; 85730; 80076; 80048 ×2; 81001; 84484; 80061; 93880; 70551; 70544; 71010; 70450; 71275; 74174; 93010; 97163; G0378 ×3; A9270 ×6; J1650 ×2; J3490; J3480 ×3; G8978; G8979

== ENCOUNTER → 2016-12-26 | Outpatient (CLI) | payer MEDICAID ==
--- NOTE | 2016-12-26 15:44 | RADIOLOGY REPORT (SQ) ---
EXAM DESCRIPTION: LUMBAR SPINE COMPLETE COMPLETED DATE/TIME: 12/26/2016 1:40 pm REASON FOR STUDY: LUMBAGO WITH SCIATICA, UNSPECIFIED SIDE M54.40 LUMBAGO WITH SCIATICA, UNSPECIFIED SIDE COMPARISON: 01/26/2013 NUMBER OF VIEWS: Five views including obliques. TECHNIQUE: AP, lateral, oblique, and sacral radiographic images acquired of the lumbar spine. LIMITATIONS: None. FINDINGS: MINERALIZATION: Normal. SEGMENTATION: Normal. No transitional anatomy. ALIGNMENT: Normal. VERTEBRAE: Maintained height. No fracture or worrisome bone lesion. DISCS: Preserved height. No significant osteophytes or end plate irregularity. POSTERIOR ELEMENTS: Hypertrophic facet changes are present from L4-S1. HARDWARE: None in the spine. PARASPINAL SOFT TISSUES: Normal. PELVIS: Intact as visualized. No fractures or worrisome bone lesions. SI joints intact. OTHER: No other significant finding. IMPRESSION: Facet arthropathy. No acute abnormality. TECHNICAL DOCUMENTATION: JOB ID: [id number] [employer]- All Rights Reserved
== END ==
LOC: OD 13:23
PROVIDERS: ATTEND Internal Medicine
DX: M54.40 Lumbago with sciatica, unspecified side (principal)
CPT/HCPCS: 72110

== ENCOUNTER 2017-02-28 15:09 | Emergency (ER) | payer MEDICARE, MEDICAID ==
[2017-02-28] MEDS ORDERED: ASPIRIN 325 MG TABLET PO ONE (15:37)
--- NOTE | 2017-02-28 15:39 | ER Document Report ---
ED Medical Screen (RME) - General Chief Complaint: Cough Stated Complaint: COUGH, ABDOMINAL PAIN Time Seen by Provider: 02/28/17 15:36 Mode of Arrival: Wheelchair Information source: Patient TRAVEL OUTSIDE OF THE [place] IN LAST 30 DAYS: No - HPI Patient complains to provider of: chest;abd pain Onset: Other - pt states she has been having chest and abdominal pain with cough for the past few days with generalized arthralgias and myalgias. Did get flu shot this year. - Related Data Allergies/Adverse Reactions: butorphanol [From Stadol] Allergy (Verified 10/18/16 06:18) nalbuphine [From Nubain] Allergy (Verified 10/18/16 06:18) Past Medical History - Social History Chew tobacco use (# tins/day): No Frequency of alcohol use: Occasional Drug Abuse: None - Past Medical History Cardiac Medical History: Reports: Hx Hypertension Denies: Hx Atrial Fibrillation, Hx Congestive Heart Failure, Hx Coronary Artery Disease, Hx DVT, Hx Heart Attack, Hx Hypercholesterolemia, Hx Pulmonary Embolism Pulmonary Medical History: Denies: Hx Asthma, Hx COPD, Hx Sleep Apnea Neurological Medical History: Denies: Hx Seizures Endocrine Medical History: Reports: Hx Hypothyroidism. Denies: Hx Diabetes Mellitus Type 1, Hx Diabetes Mellitus Type 2, Hx Hyperthyroidism Renal/ Medical History: Denies: Hx Peritoneal Dialysis GI Medical History: Denies: Hx Cirrhosis, Hx Gastroesophageal Reflux Disease, Hx Hepatitis Musculoskeltal Medical History: Reports Hx Arthritis Psychiatric Medical History: Reports: Hx Depression Infectious Medical History: Denies: Hx Hepatitis Past Surgical History: Reports: Hx Appendectomy, Hx Cholecystectomy, Hx Hysterectomy, Other - Laparoscopy 2. Physical Exam - Vital signs Vitals: Temp Pulse Resp BP Pulse Ox 99.7 F 86 20 152/93 H 95 02/28/17 15:19 02/28/17 15:19 02/28/17 15:19 02/28/17 15:19 02/28/17 15:19 Course - Vital Signs Vital signs: Temp Pulse Resp BP Pulse Ox 99.7 F 86 20 152/93 H 95 02/28/17 15:19 02/28/17 15:19 02/28/17 15:19 02/28/17 15:19 02/28/17 15:19
[2017-02-28 16:12] LABS: ABSOLUTE BASOPHILS # (AUTO) 0.1 10^3/uL (0.0-0.2); ABSOLUTE EOSINOPHILS # (AUTO) 0.2 10^3/uL (0.0-0.6); ABSOLUTE LYMPHOCYTES (AUTO) 1.1 10^3/uL (0.5-4.7); ABSOLUTE MONOCYTES (AUTO) 0.9 10^3/uL (0.1-1.4); ABSOLUTE NEUT (AUTO) 3.6 10^3/uL (1.7-8.2); BASOPHILS % (AUTO) 1.4 % (0-2); EOSINOPHILS % (AUTO) 3.7 % (0-6); HEMATOCRIT 38.7 % (36.0-47.0); HEMOGLOBIN 13.2 g/dL (12.0-15.5); HGB HCT DIFFERENCE 0.9; LYMPHOCYTES % (AUTO) 18.3 % (13-45); MEAN CORPUSCULAR HEMOGLOBIN 30.1 pg (27.0-33.4); MEAN CORPUSCULAR HGB CONC 34.1 g/dL (32.0-36.0); MEAN CORPUSCULAR VOLUME 88 fl (80-97); MONOCYTES % (AUTO) 14.6 % (3-13); RED BLOOD COUNT 4.39 10^6/uL (3.72-5.28); RED CELL DISTRIBUTION WIDTH 14.8 % (11.5-14.0); WHITE BLOOD COUNT 5.9 10^3/uL (4.0-10.5)
--- NOTE | 2017-02-28 16:20 | RADIOLOGY REPORT (SQ) ---
EXAM DESCRIPTION: ACUTE ABDOMEN SERIES COMPLETED DATE/TIME: 02/28/2017 4:08 pm REASON FOR STUDY: chest/abd pain COMPARISON: None. NUMBER OF VIEWS: Three views. TECHNIQUE: Frontal chest, supine abdomen and upright/decubitus abdomen radiographic images acquired. LIMITATIONS: None. FINDINGS: CHEST: Lungs clear of infiltrates. FREE AIR: None. No abnormal gas collections. BOWEL GAS PATTERN: Nonobstructive pattern. No dilated loops or air fluid levels. CALCIFICATIONS: No suspicious calcifications. HARDWARE: None in the abdomen. SOFT TISSUES: No gross mass or suggestion of organomegaly. BONES: No acute fracture. No worrisome bone lesions. OTHER: No other significant finding. IMPRESSION: NO RADIOGRAPHIC EVIDENCE FOR ACUTE ABDOMINAL DISEASE. TECHNICAL DOCUMENTATION: JOB ID: [id number] [employer]- All Rights Reserved
[2017-02-28 16:23] LABS: APPEARANCE,URINE CLEAR; BILIRUBIN,URINE NEGATIVE (NEGATIVE); GLUCOSE, URINE NEGATIVE (NEGATIVE); KETONES,URINE NEGATIVE (NEGATIVE); LEUKOCYTE ESTERASE,URINE NEGATIVE (NEGATIVE); NITRITE,URINE NEGATIVE (NEGATIVE); PROTEIN,URINE NEGATIVE (NEGATIVE); URINE SPECIFIC GRAVITY 1.027
[2017-02-28 16:29] LABS: ALANINE AMINOTRANSFERASE 36 U/L (9-52); ALBUMIN 3.9 g/dL (3.5-5.0); ALKALINE PHOSPHATASE 126 U/L (38-126); ANION GAP 12 (5-19); ASPARTATE AMINO TRANSFERASE 26 U/L (14-36); BILIRUBIN,DIRECT 0.3 mg/dL (0.0-0.4); BILIRUBIN,TOTAL 0.5 mg/dL (0.2-1.3); BLOOD UREA NITROGEN 13 mg/dL (7-20); CALCIUM 9.5 mg/dL (8.4-10.2); CARBON DIOXIDE 27 mmol/L (22-30); CHLORIDE 104 mmol/L (98-107); CREATINE KINASE 94 U/L (30-135); CREATININE RESULT 0.69 mg/dL (0.52-1.25); GLUCOSE 96 mg/dL (75-110); POTASSIUM 3.7 mmol/L (3.6-5.0); SODIUM 143.4 mmol/L (137-145); TOTAL PROTEIN 6.9 g/dL (6.3-8.2)
--- NOTE | 2017-02-28 16:36 | ER Document Report ---
ED Respiratory Problem <NAS CAMARA - Last Filed: 02/28/17 17:40> - General Mode of Arrival: Wheelchair Information source: Patient TRAVEL OUTSIDE OF THE [place] IN LAST 30 DAYS: No <CRISTIAN GRACE - Last Filed: 02/28/17 18:53> - General Chief Complaint: Cough Stated Complaint: COUGH, ABDOMINAL PAIN Time Seen by Provider: 02/28/17 15:36 Notes: Patient is a 67 year old female that presents to the emergency department today with complaints of a 3 day duration of a productive with clear sputum with occasional black streaks. Patient states she has had diffuse body aches as well. Patient denies fevers. (CRISTIAN GRACE) - Related Data Allergies/Adverse Reactions: butorphanol [From Stadol] Allergy (Verified 10/18/16 06:18) nalbuphine [From Nubain] Allergy (Verified 10/18/16 06:18) Past Medical History - General Information source: Patient - Social History Smoking Status: Never Smoker Cigarette use (# per day): No Chew tobacco use (# tins/day): No Frequency of alcohol use: Occasional Drug Abuse: None Lives with: Family Family History: Reviewed & Not Pertinent Patient has suicidal ideation: No Patient has homicidal ideation: No - Past Medical History Cardiac Medical History: Reports: Hx Hypertension Endocrine Medical History: Reports: Hx Hypothyroidism Musculoskeltal Medical History: Reports Hx Arthritis Psychiatric Medical History: Reports: Hx Depression Past Surgical History: Reports: Hx Appendectomy, Hx Cholecystectomy, Hx Hysterectomy, Other - Laparoscopy 2. <CRISTIAN GRACE - Last Filed: 02/28/17 18:53> Review of Systems - Review of Systems Constitutional: denies: Fever EENT: See HPI, Nose congestion Cardiovascular: No symptoms reported Respiratory: See HPI, Cough Gastrointestinal: No symptoms reported Genitourinary: No symptoms reported Female Genitourinary: No symptoms reported Musculoskeletal: See HPI, Joint pain - generalized body aches Skin: No symptoms reported Hematologic/Lymphatic: No symptoms reported Neurological/Psychological: No symptoms reported -: Yes All other systems reviewed and negative <CRISTIAN GRACE - Last Filed: 02/28/17 18:53> Physical Exam - Vital signs Interpretation: Normal - General General appearance: Appears well, Alert - HEENT Head: Normocephalic, Atraumatic Eyes: Normal Pupils: PERRL Nasal: Clear rhinorrhea - nasal congestion bilaterally - Respiratory Respiratory status: No respiratory distress Chest status: Tender Breath sounds: Other - coarse breath sounds bilaterally. No: Rhonchi, Wheezing Chest palpation: Normal - Cardiovascular Rhythm: Regular Heart sounds: Normal auscultation Murmur: No - Abdominal Inspection: Normal Distension: No distension Bowel sounds: Normal Tenderness: Nontender Organomegaly: No organomegaly - Back Back: Tender - generalized paraspinal musculature ttp - Extremities General upper extremity: Normal inspection, Normal ROM. No: Edema General lower extremity: Normal inspection, Normal ROM. No: Edema - Neurological Neuro grossly intact: Yes Cognition: Normal Orientation: AAOx4 Faisal Coma Scale Eye Opening: Spontaneous Faisal Coma Scale Verbal: Oriented Faisal Coma Scale Motor: Obeys Commands Lynn Coma Scale Total: 15 Speech: Normal - Psychological Associated symptoms: Normal affect, Normal mood - Skin Skin Temperature: Warm Skin Moisture: Dry Skin Color: Normal <CRISTIAN GRACE - Last Filed: 02/28/17 18:53> - Vital signs Vitals: Temp Pulse Resp BP Pulse Ox 99.7 F 86 20 152/93 H 95 02/28/17 15:19 02/28/17 15:19 02/28/17 15:19 02/28/17 15:19 02/28/17 15:19 Course - Laboratory Result Diagrams: 02/28/17 15:55 02/28/17 15:55 - Diagnostic Test Radiology reviewed: Reports reviewed - Acute abdominal series is unremarkable. <NAS CAMARA - Last Filed: 02/28/17 17:40> - Laboratory Result Diagrams: 02/28/17 15:55 02/28/17 15:55 <CRISTIAN GRACE - Last Filed: 02/28/17 18:53> - Vital Signs Vital signs: Temp Pulse Resp BP Pulse Ox 98.8 F 70 20 164/79 H 98 02/28/17 17:17 02/28/17 17:17 02/28/17 15:19 02/28/17 17:17 02/28/17 17:17 - Laboratory Laboratory results interpreted by me: 02/28/17 02/28/17 15:55 15:55 RDW 14.8 H Monocytes % 14.6 H Urine Urobilinogen 2.0 H Discharge <NAS CAMARA - Last Filed: 02/28/17 17:40> <CRISTIAN GRACE - Last Filed: 02/28/17 18:53> - Discharge Clinical Impression: Viral upper respiratory tract infection with cough, Viral syndrome Condition: Stable Disposition: HOME, SELF-CARE Additional Instructions: Viral Syndrome: The physician has diagnosed a viral infection. Viruses not only cause "colds," but can cause many different symptoms including generalized aching, fever, headache, cough, diarrhea, nausea, vomiting, and fatigue. The treatment, for the most part, is simply relief of symptoms. This means that antibiotics are usually not given. Rest, fluids, pain medications and, occasionally, medication for the specific symptoms that are most bothersome will be prescribed. Use good handwashing to avoid passing the virus to others. Shared toys should be cleaned with disinfectant. Clean the toilets, sinks, and counter surfaces in bathrooms. Launder clothing in hot water. Contact the physician if you develop any new or unusual symptoms such as severe headache, stiff neck, high fever, chest pain, productive cough, or shortness of breath. You should be rechecked if you don't see marked improvement within seven to 10 days. //////////////////////////////////////////////////////////////////////////////// /////////////////////////////////////////////////////////// Take medication as prescribed to help control your cough. You may also try Robitussin-DM to help suppress your cough. Take Motrin for the muscle aches. You should drink a lot more water than you have been drinking recently. Get plenty of rest. Follow-up with your doctor this week if not improving. Prescriptions: Benzonatate [Tessalon Perles 100 mg Capsule] 100 mg PO ASDIR PRN #25 capsule PRN Reason: Forms: Return to Work Referrals: HEMANTH AL MD [Primary Care Provider] - Follow up as needed Scribe Attestation: 02/28/17 16:55 I personally performed the services described in the documentation, reviewed and edited the documentation which was dictated to the scribe in my presence, and it accurately records my words and actions. (NAS CAMARA) Scribe Documentation - Scribe Written by Renetta:: Renetta Mccrary, 02/28/2017 1850 acting as scribe for :: Jack <CRISTIAN GRACE - Last Filed: 02/28/17 18:53>
[2017-02-28 16:40] LABS: CREATINE KINASE MB 0.64 ng/mL (<4.55)
[2017-02-28] MEDS ORDERED: IBUPROFEN 800 MG TABLET PO ONE (16:40)
[2017-02-28] MEDS ORDERED: BENZONATATE 100 MG CAPSULE PO ONE (16:40)
[2017-02-28 16:44] LABS: TROPONIN I < 0.012 ng/mL
[2017-02-28 17:20] VITALS: BP 164/79
== END 2017-02-28 17:20 | disposition home or self-care (01) ==
LOC: ER 15:09
DX: J06.9 Acute upper respiratory infection, unspecified (principal); B34.9 Viral infection, unspecified; R05 Cough; M79.1 Myalgia
CPT/HCPCS: 99284; 36415; 82553; 82550; 83690; 85025; 80053; 81001; 84484; 87804; 74022; A9270 ×3

== ENCOUNTER 2017-06-02 08:29 | Emergency (ER) | payer MEDICARE, MEDICAID ==
--- NOTE | 2017-06-02 08:41 | ER Document Report ---
ED GI/ - General Stated Complaint: VOMITING Time Seen by Provider: 06/02/17 08:33 Notes: Nausea vomiting diarrhea right upper quadrant epigastric pain. S/P open night. Hyperthyroidism, hypertension, GERD, previous hysterectomy, appendectomy, previous lap procedures. TRAVEL OUTSIDE OF THE [place] IN LAST 30 DAYS: No - Related Data Allergies/Adverse Reactions: butorphanol [From Stadol] Allergy (Verified 10/18/16 06:18) nalbuphine [From Nubain] Allergy (Verified 10/18/16 06:18) Past Medical History - Social History Smoking Status: Never Smoker Family History: Reviewed & Not Pertinent - Past Medical History Cardiac Medical History: Reports: Hx Hypertension Denies: Hx Atrial Fibrillation, Hx Congestive Heart Failure, Hx Coronary Artery Disease, Hx DVT, Hx Heart Attack, Hx Hypercholesterolemia, Hx Pulmonary Embolism Pulmonary Medical History: Denies: Hx Asthma, Hx COPD, Hx Sleep Apnea Neurological Medical History: Denies: Hx Seizures Endocrine Medical History: Reports: Hx Hypothyroidism. Denies: Hx Diabetes Mellitus Type 1, Hx Diabetes Mellitus Type 2, Hx Hyperthyroidism Renal/ Medical History: Denies: Hx Peritoneal Dialysis GI Medical History: Denies: Hx Cirrhosis, Hx Gastroesophageal Reflux Disease, Hx Hepatitis Musculoskeltal Medical History: Reports Hx Arthritis Psychiatric Medical History: Reports: Hx Depression Infectious Medical History: Denies: Hx Hepatitis Past Surgical History: Reports: Hx Appendectomy, Hx Cholecystectomy, Hx Hysterectomy, Other - Laparoscopy 2. Physical Exam - Vital signs Vitals: Resp Pulse Ox 16 98 06/02/17 08:36 06/02/17 08:36 Course - Re-evaluation Re-evalutation: 06/02/17 09:46 Patient is a 67-year-old female presents emergency department with a chief complaint of epigastric/right upper quadrant pain. She is hemodynamically stable, no acute distress and afebrile. Vital signs stable. Exam with minimal epigastric tenderness. CBC stable with mild elevation in white blood cells consistent with patient's recent emesis. CMP stable without any evidence of elevated LFTs, elevated lipase. Right upper quadrant ultrasound any evidence of gallbladder disease. 06/02/17 11:49 Patient with nausea and did not tolerate p.o. GI cocktail. Will hydrate and premedicate conduct another p.o. trial. Repeat abdominal exams without any focal abdominal tenderness. Patient with previous appendectomy. Gallbladder stable on ultrasound. No concerns for pancreatitis. Patient's vital signs remained stable. 06/02/17 15:49 After multiple medications and allowing patient to sleep she is able to tolerate p.o. without any difficulty. Repeat abdominal exams without any focal abdominal tenderness, concerns for perforation. Patient presents with epigastric abdominal pain with associated reflux symptoms most consistent with likely gastritis. Patient has no focal abdominal tenderness on examination. Right upper quadrant ultrasound does not demonstrate any evidence of acute cholecystitis or cholelithiasis. Lipase is normal. No LFT changes. Based on history and exam, I do not suspect ACS, pulmonary embolus, SBO, mesenteric ischemia, acute pancreatitis, biliary pathology, or an abdominal aortic dissection. Patient has had improvement of symptoms here with a GI cocktail. At this time will discharge with return precautions and follow-up recommendations. Verbal discharge instructions given a the bedside and opportunity for questions given. Medication warnings reviewed. Patient is in agreement with this plan and has verbalized understanding of return precautions and the need for primary care follow-up in the next 24-72 hours. - Vital Signs Vital signs: Temp Pulse Resp BP Pulse Ox 98.5 F 14 133/72 H 95 06/02/17 16:11 06/02/17 16:01 06/02/17 16:00 06/02/17 16:01 - Laboratory Result Diagrams: 06/02/17 08:08 06/02/17 08:08 Laboratory results interpreted by me: 06/02/17 06/02/17 08:08 08:08 WBC 11.9 H RDW 14.7 H Seg Neutrophils % 87.2 H Lymphocytes % 5.6 L Absolute Neutrophils 10.4 H Glucose 113 H - Diagnostic Test Radiology reviewed: Reports reviewed Discharge - Discharge Clinical Impression: Epigastric pain Condition: Good Disposition: HOME, SELF-CARE Additional Instructions: Your prescriptions have been called in to your pharmacy. ABDOMINAL PAIN: There are many causes of abdominal pain. Pain can mean a serious problem requiring surgery (such as appendicitis). It can also be an innocent problem that goes away on its own (such as a viral infection). Often, time must pass to determine the cause of pain. The physician does not feel that hospitalization is necessary, at present. Things may change within the next 24 hours. Call the doctor or come back for re- examination if any problems occur, such as: (1) Pain that becomes more severe, steady, or becomes concentrated in one specific area. Also, pain that is more severe with movement or coughing. (2) Vomiting that persists or becomes more frequent. (3) Blood in the vomitus, urine, or bowel movements. Blood in the stool may have a tarry or black appearance. (4) Shaking chills or fever greater than 100 degrees F. (5) The abdomen becomes more distended or swollen. (6) Bowel movements cease. (7) Failure to improve as expected. NORMAL EXAM AND WORKUP: At this time, your examination and workup show no significant abnormality. No significant abnormal physical findings are noted. All laboratory, EKG, and imaging (x-ray, CT scans, ultrasound) studies that were ordered show no significant abnormality. Although your examination and all studies that were ordered showed no significant abnormal finding, there are no examinations and no studies that are 100% accurate. There is always the possibility that some abnormality could exist and not be detected with physical examination or within the limits and capabilities of laboratory and other studies. You should return or follow up as you were instructed on your visit today for further evaluation if your symptoms do not resolve. TORADOL INJECTION: You have been given an injection of ketorolac tromethamine (Toradol). This is an excellent, safe drug for pain control. It also has potent antiinflammatory action. You should have significant pain relief within about one hour. Toradol is not addicting and is non-sedating. It does not interfere with driving or work. Call or return if you develop itching, hives, shortness of breath, or rash. PAIN MEDICATION INJECTION: You have received an injection of a pain medication. You should experience significant pain relief within 45 minutes. This drug is a narcotic - - it will impair your judgement, slow your reaction time and make you sleepy ( as well as relieve your pain). Narcotics also can cause nausea. You should not drive, work with machinery, or perform any task requiring mental alertness until all effects of the medication are gone -- six to eight hours. Do not take any alcohol, or sedatives, and do not take any other medication without checking with your physician. ANTINAUSEA MEDICATION: You have been given a medication to suppress nausea and vomiting. This type of medication can be given as a shot, pill, or suppository. It will usually last for many hours. Pills and shots usually last six to eight hours, suppositories last about 12 hours. For the typical illness, only one or two doses of the medication may be necessary. Mild lightheadedness may occur. This type of medicine can cause drowsiness. Do not drive or operate dangerous machinery while under its influence. Do not mix with alcohol. See your doctor at once if you have muscle spasms or tightness, or uncontrollable motions (particularly of the neck, mouth, or jaw). Persistent vomiting or severe lightheadedness should also be evaluated by the physician. FOLLOW-UP CARE: If you have been referred to a physician for follow-up care, call the physician s office for an appointment as you were instructed or within the next two days. If you experience worsening or a significant change in your symptoms, notify the physician immediately or return to the Emergency Department at any time for re-evaluation. Forms: Return to Work Referrals: HEMANTH AL MD [Primary Care Provider] - Follow up in 3-5 days
[2017-06-02 09:00] LABS: ABSOLUTE BASOPHILS # (AUTO) 0.1 10^3/uL (0.0-0.2); ABSOLUTE EOSINOPHILS # (AUTO) 0.1 10^3/uL (0.0-0.6); ABSOLUTE LYMPHOCYTES (AUTO) 0.7 10^3/uL (0.5-4.7); ABSOLUTE MONOCYTES (AUTO) 0.7 10^3/uL (0.1-1.4); ABSOLUTE NEUT (AUTO) 10.4 10^3/uL (1.7-8.2); BASOPHILS % (AUTO) 0.5 % (0-2); EOSINOPHILS % (AUTO) 0.5 % (0-6); HEMATOCRIT 41.2 % (36.0-47.0); HEMOGLOBIN 13.8 g/dL (12.0-15.5); LYMPHOCYTES % (AUTO) 5.6 % (13-45); MEAN CORPUSCULAR HEMOGLOBIN 29.5 pg (27.0-33.4); MEAN CORPUSCULAR HGB CONC 33.4 g/dL (32.0-36.0); MEAN CORPUSCULAR VOLUME 88 fl (80-97); MONOCYTES % (AUTO) 6.2 % (3-13); PLATELET COUNT 274 10^3/uL (150-450); RED BLOOD COUNT 4.67 10^6/uL (3.72-5.28); RED CELL DISTRIBUTION WIDTH 14.7 % (11.5-14.0); SEGMENTED NEUTROPHILS % (AUTO) 87.2 % (42-78); TOTAL CELLS COUNTED % (AUTO) 100 %; WHITE BLOOD COUNT 11.9 10^3/uL (4.0-10.5)
[2017-06-02 09:17] LABS: ALANINE AMINOTRANSFERASE 26 U/L (9-52); ALKALINE PHOSPHATASE 116 U/L (38-126); ANION GAP 9 (5-19); ASPARTATE AMINO TRANSFERASE 28 U/L (14-36); BILIRUBIN,DIRECT 0.3 mg/dL (0.0-0.4); BILIRUBIN,TOTAL 0.6 mg/dL (0.2-1.3); BLOOD UREA NITROGEN 17 mg/dL (7-20); CALCIUM 9.5 mg/dL (8.4-10.2); CARBON DIOXIDE 27 mmol/L (22-30); CHLORIDE 107 mmol/L (98-107); GLUCOSE 113 mg/dL (75-110); LIPASE 155.6 U/L (23-300); POTASSIUM 3.8 mmol/L (3.6-5.0); SODIUM 142.7 mmol/L (137-145); TOTAL PROTEIN 7.1 g/dL (6.3-8.2)
[2017-06-02] MEDS ORDERED: METOCLOPRAMIDE HCL INJ/PF 10 MG/2 ML SDV IV ONE (09:40)
[2017-06-02] MEDS ORDERED: KETOROLAC TROMETHAMINE INJ/PF 30 MG/1 ML SDV IV ONE (09:40)
--- NOTE | 2017-06-02 10:43 | RADIOLOGY REPORT (SQ) ---
EXAM DESCRIPTION: U/S ABDOMEN LIMITED W/O DOP COMPLETED DATE/TIME: 06/02/2017 10:23 am REASON FOR STUDY: RUQ pain, N/V COMPARISON: 12/08/2012 TECHNIQUE: Dynamic and static grayscale images acquired of the abdomen and recorded on PACS. Andreo ashtyn selected color Doppler and spectral images recorded. LIMITATIONS: None. FINDINGS: PANCREAS: No masses. Visualized pancreatic duct normal caliber. LIVER: Normal size. 12.7 cm. Fatty infiltration. No masses. LIVER VASCULATURE: Normal directional flow of the main portal vein and hepatic veins. GALLBLADDER: No stones. Normal wall thickness. No pericholecystic fluid. ULTRASOUND-DETECTED PEREA'S SIGN: Negative. INTRAHEPATIC DUCTS AND COMMON DUCT: CBD and intrahepatic ducts normal caliber. No filling defects. INFERIOR VENA CAVA: Normal flow. AORTA: No aneurysm. RIGHT KIDNEY: Normal size. Normal echogenicity. No solid or suspicious masses. No hydronephrosis. No calcifications. PERITONEAL AND RIGHT PLEURAL SPACE: No ascites or effusions. OTHER: No other significant findings. IMPRESSION: Fatty infiltration of the liver. Study otherwise normal. TECHNICAL DOCUMENTATION: JOB ID: [id number]- All Rights Reserved Reading location - IP/workstation name: [email or web address]
[2017-06-02 10:47] LABS: APPEARANCE,URINE CLEAR; BILIRUBIN,URINE NEGATIVE (NEGATIVE); COLOR,URINE YELLOW; GLUCOSE, URINE NEGATIVE (NEGATIVE); KETONES,URINE NEGATIVE (NEGATIVE); LEUKOCYTE ESTERASE,URINE NEGATIVE (NEGATIVE); NITRITE,URINE NEGATIVE (NEGATIVE); PROTEIN,URINE NEGATIVE (NEGATIVE); URINE SPECIFIC GRAVITY 1.025; UROBILINOGEN,URINE NEGATIVE mg/dL (<2.0)
[2017-06-02] MEDS ORDERED: LIDOCAINE 2% VISCOUS SOLN 20 ML UDCUP PO ONE (10:55)
[2017-06-02] MEDS ORDERED: METOCLOPRAMIDE HCL ORAL SOLN 10 MG/10 ML UDCUP PO ONE (10:55)
[2017-06-02] MEDS ORDERED: MAG HYDROX/AL HYDROX/SIMETH SUSP 30 ML UDCUP PO ONE (10:55)
[2017-06-02] MEDS ORDERED: ONDANSETRON HCL INJ/PF 4 MG/2 ML SDV IV ONE (11:48)
[2017-06-02] MEDS ORDERED: PANTOPRAZOLE SODIUM 40 MG VIAL IV ONE (11:49)
[2017-06-02] MEDS ORDERED: NORMAL SALINE 1000 ML 1,000 ML IV PRN (12:47)
[2017-06-02] MEDS ORDERED: PROCHLORPERAZINE EDISYLATE INJ 10 MG/2 ML VIAL IV ONE (13:44)
[2017-06-02 16:12] VITALS: BP 133/72
== END 2017-06-02 16:12 | disposition home or self-care (01) ==
LOC: ER 08:29
DX: R10.13 Epigastric pain (principal); R10.11 Right upper quadrant pain; R11.2 Nausea with vomiting, unspecified; D72.829 Elevated white blood cell count, unspecified; I10 Essential (primary) hypertension; Z90.49 Acquired absence of other specified parts of digestive tract; Z90.710 Acquired absence of both cervix and uterus; Z87.19 Personal history of other diseases of the digestive system; Z88.5 Allergy status to narcotic agent
CPT/HCPCS: 99284; 96361; 96374; 96375; 36415; 83690; 83735; 85025; 80053; 81001; 76705; J3490; J1885; J2765; A9270; C9113; J0780; J2405; J7030; S0164

== ENCOUNTER 2017-07-25 10:38 | Emergency (ER) | payer MEDICARE, MEDICAID ==
[2017-07-25] MEDS ORDERED: KETOROLAC TROMETHAMINE INJ/PF 30 MG/1 ML SDV IV ONE (11:17)
[2017-07-25 11:22] LABS: HEMATOCRIT 42.1 % (36.0-47.0); HEMOGLOBIN 14.3 g/dL (12.0-15.5); MEAN CORPUSCULAR HEMOGLOBIN 29.9 pg (27.0-33.4); MEAN CORPUSCULAR HGB CONC 33.9 g/dL (32.0-36.0); MEAN CORPUSCULAR VOLUME 88 fl (80-97); PLATELET COUNT 287 10^3/uL (150-450); RED BLOOD COUNT 4.77 10^6/uL (3.72-5.28); RED CELL DISTRIBUTION WIDTH 14.9 % (11.5-14.0); WHITE BLOOD COUNT 13.7 10^3/uL (4.0-10.5)
[2017-07-25 11:31] LABS: ALANINE AMINOTRANSFERASE 29 U/L (9-52); ALBUMIN 4.4 g/dL (3.5-5.0); ALKALINE PHOSPHATASE 113 U/L (38-126); ANION GAP 12 (5-19); ASPARTATE AMINO TRANSFERASE 31 U/L (14-36); BILIRUBIN,DIRECT 0.2 mg/dL (0.0-0.4); BILIRUBIN,TOTAL 0.9 mg/dL (0.2-1.3); BLOOD UREA NITROGEN 18 mg/dL (7-20); CALCIUM 9.8 mg/dL (8.4-10.2); CARBON DIOXIDE 27 mmol/L (22-30); CHLORIDE 104 mmol/L (98-107); GLUCOSE 111 mg/dL (75-110); LIPASE 147.3 U/L (23-300); SODIUM 142.6 mmol/L (137-145); TOTAL PROTEIN 7.4 g/dL (6.3-8.2)
--- NOTE | 2017-07-25 11:36 | ER Document Report ---
ED General - General Chief Complaint: Abdominal Pain Stated Complaint: ABDOMINAL PAIN Time Seen by Provider: 07/25/17 10:47 Mode of Arrival: Medic Information source: Patient Notes: Patient presents to the emergency department via EMS with complaints of abdominal pain nausea vomiting diarrhea since yesterday. Patient reports history of same symptoms 1 month ago where she was evaluated in the emergency department. She reports she has been told that she has gallbladder sludge. She also reports that Dr. Al told her she may have an irritable bowel. She reports she has had abdominal pain for the past 5 days. Has pain with void. Denies urinary frequency. Denies vaginal discharge. Took Phenergan at 32. Patient reports that the last time she was here they kept asking if she took drugs. Denies drug use, reports occasional wine. TRAVEL OUTSIDE OF THE [place] IN LAST 30 DAYS: No - HPI Onset: Yesterday Onset/Duration: Persistent Quality of pain: Cramping Severity: Severe Pain Level: 4 Associated symptoms: Diarrhea, Nausea, Vomiting Exacerbated by: Denies Relieved by: Denies Similar symptoms previously: Yes Recently seen / treated by doctor: Yes - Related Data Allergies/Adverse Reactions: butorphanol [From Stadol] Allergy (Verified 10/18/16 06:18) erythromycin base Allergy (Verified 07/25/17 11:23) nalbuphine [From Nubain] Allergy (Verified 10/18/16 06:18) Past Medical History - General Information source: Patient Last Menstrual Period: hyst - Social History Smoking Status: Never Smoker Cigarette use (# per day): No Frequency of alcohol use: Occasional Drug Abuse: None Family History: Reviewed & Not Pertinent Patient has suicidal ideation: No Patient has homicidal ideation: No - Past Medical History Cardiac Medical History: Reports: Hx Hypertension Denies: Hx Atrial Fibrillation, Hx Congestive Heart Failure, Hx Coronary Artery Disease, Hx DVT, Hx Heart Attack, Hx Hypercholesterolemia, Hx Pulmonary Embolism Pulmonary Medical History: Denies: Hx Asthma, Hx COPD, Hx Sleep Apnea Neurological Medical History: Denies: Hx Seizures Endocrine Medical History: Reports: Hx Hypothyroidism. Denies: Hx Diabetes Mellitus Type 1, Hx Diabetes Mellitus Type 2, Hx Hyperthyroidism Renal/ Medical History: Denies: Hx Peritoneal Dialysis GI Medical History: Reports: Hx Gastroesophageal Reflux Disease. Denies: Hx Cirrhosis, Hx Hepatitis Musculoskeltal Medical History: Reports Hx Arthritis Psychiatric Medical History: Reports: Hx Depression Infectious Medical History: Denies: Hx Hepatitis Past Surgical History: Reports: Hx Appendectomy, Hx Hysterectomy, Other - Laparoscopy 2. Review of Systems - Review of Systems Notes: Review HPI for review of systems., All other systems negative Physical Exam - Vital signs Vitals: Temp Pulse BP Pulse Ox 98.0 F 80 130/77 H 98 07/25/17 10:38 07/25/17 10:38 07/25/17 10:38 07/25/17 10:38 - Notes Notes: PHYSICAL EXAMINATION: GENERAL: Well-appearing and in no acute distress HEAD: Atraumatic, normocephalic. EYES: Pupils equal round, extraocular movements intact, sclera anicteric, conjunctiva are normal. ENT: nares patent. Moist mucous membranes. NECK: Normal range of motion, supple without lymphadenopathy LUNGS: CTAB and equal. No wheezes rales or rhonchi. HEART: Regular rate and rhythm without murmurs ABDOMEN: soft, right side, RUQ/RLQ ttp, no rebound BACK: Right CVA ttp EXTREMITIES: Normal range of motion, no pitting edema. No cyanosis. NEUROLOGICAL: Cranial nerves grossly intact. Normal sensory/motor exams. PSYCH: Normal mood, normal affect. SKIN: Warm, Dry, normal turgor, no rashes or lesions noted Course - Re-evaluation Re-evalutation: 07/25/17 11:48 Complaining pain Toradol ordered 07/25/17 14:31 Patient resting quietly no further vomiting. Reports one episode of diarrhea. Will attempt to obtain stool sample and IV fluids provide ice chips. No complaints of pain at this time. CBC 13.5, seg 87 otherwise labs unremarkable 07/25/17 No further vomiting no further diarrhea. Patient was provided with a stool kit to take home and bring back. Patient was also provided with antinausea medicine. Patient was instructed follow-up with GI for further evaluation return to the ED for return of pain return or nausea vomiting diarrhea. She verbalized understanding tall instructions. - Vital Signs Vital signs: Temp Pulse Resp BP Pulse Ox 98.4 F 80 12 126/69 H 99 07/25/17 15:43 07/25/17 10:38 07/25/17 15:43 07/25/17 15:43 07/25/17 15:43 - Laboratory Result Diagrams: 07/25/17 10:42 07/25/17 10:42 Laboratory results interpreted by me: 07/25/17 07/25/17 10:42 10:42 WBC 13.7 H RDW 14.9 H Seg Neuts % (Manual) 87 H Lymphocytes % (Manual) 9 L Monocytes % (Manual) 2 L Abs Neuts (Manual) 11.9 H Glucose 111 H - Diagnostic Test Radiology reviewed: Image reviewed, Reports reviewed - CT completed no significant or acute findings in the abdomen or pelvis Discharge - Discharge Clinical Impression: Abdominal pain Qualifiers: Abdominal location: right upper quadrant Qualified Code(s): R10.11 - Right upper quadrant pain Nausea & vomiting Qualifiers: Vomiting type: unspecified Diarrhea Qualifiers: Diarrhea type: unspecified type Qualified Code(s): R19.7 - Diarrhea, unspecified Condition: Stable Disposition: HOME, SELF-CARE Instructions: Abdominal Pain ([facility]), Antinausea Medication ([facility]), Gastroenterology, Intravenous (IV) Fluids ([facility]), OTC Antidiarrhea Medication ( [facility]) Additional Instructions: *You have been evaluated for abdominal pain, nausea/vomiting/diarrhea *Take medication as prescribed for nausea *Over the counter anti-diarrheal as indicated *Ensure adequate fluid intake as discussed to prevent dehydration *Return to outpatient lab with stool sample *Follow up with gastroenterology for evaluation within one week *Follow up with your primary care provider within 5 days for a recheck *Return to ED for worsening condition, changes, needs Prescriptions: Promethazine HCl [Phenergan 25 mg Tablet] 25 - 50 mg PO ASDIR PRN #12 tablet PRN Reason: Forms: Elevated Blood Pressure, Follow-Up Laboratory Testing Referrals: HEMANTH AL MD [Primary Care Provider] - Follow up in 3-5 days SENDY AL MD [ACTIVE STAFF] - Follow up as needed JAVIER HERNANDEZ MD [ACTIVE STAFF] - Follow up as needed
[2017-07-25] MEDS ORDERED: METOCLOPRAMIDE HCL INJ/PF 10 MG/2 ML SDV IV ONE (11:38)
[2017-07-25 11:45] LABS: ABSOLUTE LYMPHOCYTES# (MANUAL) 1.2 10^3/uL (0.5-4.7); ABSOLUTE MONOCYTES # (MANUAL) 0.3 10^3/uL (0.1-1.4); ABSOLUTE NEUTROPHILS# (MANUAL) 11.9 10^3/uL (1.7-8.2); BASOPHILS % (MANUAL) 0 % (0-2); EOSINOPHILS % (MANUAL) 2 % (0-6); LYMPHOCYTES % (MANUAL) 9 % (13-45); MONOCYTES % (MANUAL) 2 % (3-13); SEGMENTED NEUTROPHILS % (MAN) 87 % (42-78); TOTAL CELLS COUNTED 100
[2017-07-25 11:46] LABS: TOXIC GRANULATION 1+
[2017-07-25 11:47] LABS: ANISOCYTOSIS SLIGHT; PLATELET COMMENT ADEQUATE
[2017-07-25 12:14] LABS: APPEARANCE,URINE CLEAR; BILIRUBIN,URINE NEGATIVE (NEGATIVE); COLOR,URINE YELLOW; GLUCOSE, URINE NEGATIVE (NEGATIVE); KETONES,URINE NEGATIVE (NEGATIVE); LEUKOCYTE ESTERASE,URINE NEGATIVE (NEGATIVE); NITRITE,URINE NEGATIVE (NEGATIVE); PROTEIN,URINE NEGATIVE (NEGATIVE); URINE SPECIFIC GRAVITY 1.024; UROBILINOGEN,URINE NEGATIVE mg/dL (<2.0)
--- NOTE | 2017-07-25 14:20 | RADIOLOGY REPORT (SQ) ---
EXAM DESCRIPTION: CT ABD/PELVIS WITH IV ORAL COMPLETED DATE/TIME: 07/25/2017 2:08 pm REASON FOR STUDY: abd pain, n/v/d COMPARISON: 2017 TECHNIQUE: CT scan of the abdomen and pelvis performed with intravenous and oral contrast using melodie umesh scanning technique with dynamic intravenous contrast injection. Images reviewed with lung, soft t issue, and bone windows. Reconstructed coronal and sagittal MPR images reviewed. Delayed images for e valuation of the urinary system also acquired. All images stored on PACS. All CT scanners at this facility use dose modulation, iterative reconstruction, and/or weight based d osing when appropriate to reduce radiation dose to as low as reasonably achievable (ALARA). [facility]: Dose Right [facility]: CareDose [facility]: Dose Right [facility]: Teradose 4D [facility]: [facility] CONTRAST TYPE AND DOSE: contrast/concentration: Isovue 370.00 mg/ml; Total Contrast Delivered: 88.0 ml; Total Saline Delivered: 69.0 ml RENAL FUNCTION: Creatinine 0.7 RADIATION DOSE: CT Rad equipment meets quality standard of care and radiation dose reduction techniq ues were employed. CTDIvol: 7.6 - 10.8 mGy. DLP: 1111 mGy-cm.. LIMITATIONS: None. FINDINGS: LOWER CHEST: No significant findings. No nodules or infiltrates. LIVER: Normal size. No masses. No dilated ducts. SPLEEN: Normal size. No focal lesions. PANCREAS: No masses. No significant calcifications. No adjacent inflammation or peripancreatic fluid collections. Pancreatic duct not dilated. GALLBLADDER: No identified stones by CT criteria. No inflammatory changes to suggest cholecystitis. ADRENAL GLANDS: No significant masses or asymmetry. RIGHT KIDNEY AND URETER: No solid masses. No significant calcification. No hydronephrosis or hydroure ter. LEFT KIDNEY AND URETER: No solid masses. No significant calcification. No hydronephrosis or hydrouret er. AORTA AND VESSELS: No aneurysm. No dissection. Renal arteries, SMA, celiac without stenosis. RETROPERITONEUM: No retroperitoneal adenopathy, hemorrhage or masses. BOWEL AND PERITONEAL CAVITY: No obstruction. No visualized masses. No free fluid. No inflammatory ch anges or thickening of bowel wall. APPENDIX: Surgically absent. PELVIS: The times ABDOMINAL WALL: No masses. No hernias. BONES: No significant or acute findings. OTHER: No other significant finding. IMPRESSION: NO SIGNIFICANT OR ACUTE FINDINGS IN THE ABDOMEN OR PELVIS. TECHNICAL DOCUMENTATION: JOB ID: [id number] Quality ID # [id number]: Final reports with documentation of one or more dose reduction techniques (e.g., Au tomated exposure control, adjustment of the mA and/or kV according to patient size, use of iterative reconstruction technique) 2010 [employer]- All Rights Reserved Reading location - IP/workstation name: [email or web address]
[2017-07-25] MEDS ORDERED: NORMAL SALINE 1000 ML 1,000 ML IV ONE (14:30)
[2017-07-25 16:02] VITALS: BP 126/69
== END 2017-07-25 16:04 | disposition home or self-care (01) ==
LOC: ER 10:38
DX: R10.11 Right upper quadrant pain (principal); R11.2 Nausea with vomiting, unspecified; R19.7 Diarrhea, unspecified; R30.9 Painful micturition, unspecified; I10 Essential (primary) hypertension
CPT/HCPCS: 99285; 96361; 96374; 96375; 36415; 83690; 85025; 80053; 81001; 74177; J1885; J2765; J7030

== ENCOUNTER 2017-11-22 13:29 | Emergency (ER) | payer MEDICARE, MEDICAID ==
--- NOTE | 2017-11-22 14:52 | ER Document Report ---
ED Medical Screen (RME) - General Chief Complaint: Bloody Stools Stated Complaint: BLOODY URINE/STOOLS Time Seen by Provider: 11/22/17 14:51 TRAVEL OUTSIDE OF THE [place] IN LAST 30 DAYS: No - HPI Notes: 11/22/17 14:51 Hematuria unsure about blood in stool nausea feeling unwell starting this morning - Related Data Allergies/Adverse Reactions: butorphanol [From Stadol] Allergy (Verified 11/22/17 13:29) erythromycin base Allergy (Verified 11/22/17 13:29) nalbuphine [From Nubain] Allergy (Verified 11/22/17 13:29) Past Medical History - Past Medical History Cardiac Medical History: Reports: Hx Hypertension Denies: Hx Atrial Fibrillation, Hx Congestive Heart Failure, Hx Coronary Artery Disease, Hx DVT, Hx Heart Attack, Hx Hypercholesterolemia, Hx Pulmonary Embolism Pulmonary Medical History: Denies: Hx Asthma, Hx COPD, Hx Sleep Apnea Neurological Medical History: Denies: Hx Seizures Endocrine Medical History: Reports: Hx Hypothyroidism. Denies: Hx Diabetes Mellitus Type 1, Hx Diabetes Mellitus Type 2, Hx Hyperthyroidism Renal/ Medical History: Denies: Hx Peritoneal Dialysis GI Medical History: Reports: Hx Gastroesophageal Reflux Disease. Denies: Hx Cirrhosis, Hx Hepatitis Musculoskeltal Medical History: Reports Hx Arthritis Psychiatric Medical History: Reports: Hx Depression Infectious Medical History: Denies: Hx Hepatitis Past Surgical History: Reports: Hx Appendectomy, Hx Cholecystectomy, Hx Hysterectomy, Other - Laparoscopy 2. Review of Systems - Review of Systems Constitutional: Other - Hematuria possible blood in stool nausea feeling unwell Physical Exam - Vital signs Vitals: Temp Pulse Resp BP Pulse Ox 98.4 F 78 15 163/71 H 99 11/22/17 13:32 11/22/17 13:32 11/22/17 13:32 11/22/17 13:32 11/22/17 13:32 - Respiratory Respiratory status: No respiratory distress Chest status: Nontender Breath sounds: Normal Chest palpation: Normal - Cardiovascular Rhythm: Regular Heart sounds: Normal auscultation Course - Vital Signs Vital signs: Temp Pulse Resp BP Pulse Ox 98.4 F 78 15 163/71 H 99 11/22/17 13:32 11/22/17 13:32 11/22/17 13:32 11/22/17 13:32 09/02/18 13:32 Doctor's Discharge - Discharge Referrals: HEMANTH AL MD [Primary Care Provider] - Follow up as needed
[2017-11-22 15:46] LABS: ABSOLUTE BASOPHILS # (AUTO) 0.1 10^3/uL (0.0-0.2); ABSOLUTE EOSINOPHILS # (AUTO) 0.1 10^3/uL (0.0-0.6); ABSOLUTE LYMPHOCYTES (AUTO) 1.8 10^3/uL (0.5-4.7); ABSOLUTE MONOCYTES (AUTO) 1.1 10^3/uL (0.1-1.4); ABSOLUTE NEUT (AUTO) 9.1 10^3/uL (1.7-8.2); BASOPHILS % (AUTO) 0.9 % (0-2); EOSINOPHILS % (AUTO) 0.5 % (0-6); HEMATOCRIT 40.7 % (36.0-47.0); HEMOGLOBIN 13.6 g/dL (12.0-15.5); LYMPHOCYTES % (AUTO) 14.6 % (13-45); MEAN CORPUSCULAR HEMOGLOBIN 29.8 pg (27.0-33.4); MEAN CORPUSCULAR HGB CONC 33.5 g/dL (32.0-36.0); MEAN CORPUSCULAR VOLUME 89 fl (80-97); MONOCYTES % (AUTO) 8.9 % (3-13); PLATELET COUNT 287 10^3/uL (150-450); RED BLOOD COUNT 4.57 10^6/uL (3.72-5.28); RED CELL DISTRIBUTION WIDTH 14.8 % (11.5-14.0); SEGMENTED NEUTROPHILS % (AUTO) 75.1 % (42-78); TOTAL CELLS COUNTED % (AUTO) 100 %; WHITE BLOOD COUNT 12.1 10^3/uL (4.0-10.5)
[2017-11-22 15:50] LABS: INTERNATIONAL RATION (INR) 0.92; PROTHROMBIN TIME 12.8 SEC (11.4-15.4)
[2017-11-22 15:51] LABS: APPEARANCE,URINE SLIGHTLY-CLOUDY; BILIRUBIN,URINE NEGATIVE (NEGATIVE); COLOR,URINE YELLOW; GLUCOSE, URINE NEGATIVE (NEGATIVE); KETONES,URINE NEGATIVE (NEGATIVE); LEUKOCYTE ESTERASE,URINE SMALL (NEGATIVE); NITRITE,URINE NEGATIVE (NEGATIVE); PARTIAL THROMBOPLASTIN TIME 26.7 SEC (23.5-35.8); PROTEIN,URINE 100 mg/dL (NEGATIVE); UROBILINOGEN,URINE NEGATIVE mg/dL (<2.0)
[2017-11-22 16:06] LABS: ALANINE AMINOTRANSFERASE 31 U/L (9-52); ALBUMIN 4.6 g/dL (3.5-5.0); ALKALINE PHOSPHATASE 125 U/L (38-126); ANION GAP 11 (5-19); ASPARTATE AMINO TRANSFERASE 32 U/L (14-36); BILIRUBIN,DIRECT 0.2 mg/dL (0.0-0.4); BILIRUBIN,TOTAL 0.8 mg/dL (0.2-1.3); BLOOD UREA NITROGEN 12 mg/dL (7-20); CALCIUM 9.9 mg/dL (8.4-10.2); CARBON DIOXIDE 29 mmol/L (22-30); CHLORIDE 105 mmol/L (98-107); GLUCOSE 93 mg/dL (75-110); LIPASE 130.4 U/L (23-300); SODIUM 144.7 mmol/L (137-145); TOTAL PROTEIN 8.2 g/dL (6.3-8.2)
[2017-11-22] MEDS ORDERED: NITROFURANTOIN MONOHYD/M-CRYST 100 MG CAPSULE PO ONE (17:36)
--- NOTE | 2017-11-22 17:45 | ER Document Report ---
ED General - General Chief Complaint: Bloody Stools Stated Complaint: BLOODY URINE/STOOLS Time Seen by Provider: 11/22/17 14:51 Notes: Patient since she awakened as she usually does around 6:30 AM today and had to go "potty". She can only get a very small dribble of urine out. Over the next hour or 2, patient was able to get an increasing amount of urine to come out and so she was able to empty her bladder. She did notice there appear to be blood on the tissue where she was wiping after urinating. When she then tried to stand up, she lost control of her urine. She complains of burning and discomfort with urinating. Had some fever a couple of days ago. About 8:30 AM , patient had a bowel movement and noticed what she thought was blood on the stool. Patient has some irritation around the rectum during these hot, sweaty, humid days. PMH: Appendectomy, hysterectomy. GERD. Hypertension. Hypothyroid. 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 TRAVEL OUTSIDE OF THE [place] IN LAST 30 DAYS: No - Related Data Allergies/Adverse Reactions: butorphanol [From Stadol] Allergy (Verified 11/22/17 13:29) erythromycin base Allergy (Verified 11/22/17 13:29) nalbuphine [From Nubain] Allergy (Verified 11/22/17 13:29) Past Medical History - Social History Smoking Status: Never Smoker Family History: Reviewed & Not Pertinent Patient has suicidal ideation: No Patient has homicidal ideation: No - Past Medical History Cardiac Medical History: Reports: Hx Hypertension Endocrine Medical History: Reports: Hx Hypothyroidism GI Medical History: Reports: Hx Gastroesophageal Reflux Disease Musculoskeletal Medical History: Reports Hx Arthritis Psychiatric Medical History: Reports: Hx Depression Infectious Medical History: Denies: Hx Hepatitis Past Surgical History: Reports: Hx Appendectomy, Hx Cholecystectomy, Hx Hysterectomy, Other - Laparoscopy 2. Review of Systems - Review of Systems Notes: REVIEW OF SYSTEMS: CONSTITUTIONAL : Denies fever. EENT: Denies eye, ear, nose or mouth or throat pain or other symptoms. CARDIOVASCULAR: Denies chest pain. Feet are swollen chronically, work involves standing almost all day. RESPIRATORY: Denies cough, chest congestion, or shortness of breath. GASTROINTESTINAL: Denies abdominal pain or nausea, vomiting, or diarrhea. GENITOURINARY: See HPI. MUSCULOSKELETAL: Denies back or neck pain. Denies joint pain or swelling. SKIN: Denies rash or skin lesions. NEUROLOGICAL: Denies LOC or altered mental status. Denies headache. Denies sensory loss or motor deficits. ALL OTHER SYSTEMS REVIEWED AND NEGATIVE. Physical Exam - Vital signs Vitals: Temp Pulse Resp BP Pulse Ox 98.4 F 78 15 163/71 H 99 11/22/17 13:32 11/22/17 13:32 11/22/17 13:32 11/22/17 13:32 11/22/17 13:32 Interpretation: Normal - Notes Notes: PHYSICAL EXAMINATION: GENERAL: Well-appearing, in no acute distress. Vital signs are all normal. HEAD: Atraumatic, normocephalic. EYES: Pupils equal round and reactive to light, extraocular movements intact. ENT: oropharynx clear without exudates. Moist mucous membranes. NECK: Normal range of motion, supple. LUNGS: Breath sounds clear and equal bilaterally. HEART: Regular rate and rhythm without murmurs. ABDOMEN: Soft, nontender. No guarding or rebound. No masses. Rectal exam reveals no blood. Came back negative for occult blood. Patient has chafed appearance around the anal region that looks like it could be a monilial infection. BACK: No tenderness throughout entire back. EXTREMITIES: Normal range of motion without pain. NEUROLOGICAL: Normal speech, normal gait. Normal sensory, motor, and reflex exams. Awake, alert, and oriented x3. Cranial nerves normal. PSYCH: Normal mood, normal affect. SKIN: Warm, dry, no rashes. Course - Re-evaluation Re-evalutation: 11/22/17 19:11 Urine looks suggestive of a UTI and patient will be put on Macrobid. Also patient probably has a monilial, yeast infection in the perianal region of the perineum and I will put her on 3 days of Diflucan and have advised her to get Monistat cream to use twice a day in that area. No findings to suggest rectal bleeding. - Vital Signs Vital signs: Temp Pulse Resp BP Pulse Ox 97.7 F 59 L 16 144/79 H 98 11/22/17 18:13 11/22/17 18:13 11/22/17 18:13 11/22/17 18:13 11/22/17 18:13 - Laboratory Result Diagrams: 11/22/17 15:20 11/22/17 15:20 Laboratory results interpreted by me: 11/22/17 11/22/17 15:20 15:20 WBC 12.1 H RDW 14.8 H Absolute Neutrophils 9.1 H Urine Protein 100 H Urine Blood LARGE H Ur Leukocyte Esterase SMALL H Discharge - Discharge Clinical Impression: UTI (urinary tract infection), Yeast infection involving the vagina and surrounding area, Hypothyroid Condition: Stable Disposition: HOME, SELF-CARE Additional Instructions: URINARY TRACT INFECTION: Your evaluation indicates that you have a urinary tract infection. This is due to germs growing in the bladder. This is a common problem. This infection usually responds quickly to antibiotics. Your antibiotic should be taken exactly as prescribed. Drink plenty of fluids -- three to four quarts a day. Occasionally, a bladder anesthetic will be prescribed to help stop the feeling of urgency until the antibiotic has a chance to clear the infection. This may cause your urine to be dark orange. Certain urine infections require a culture. If the doctor obtained a culture, the results will be back in two days. You should call to see if a change in treatment is needed. A repeat urinalysis after you finish treatment is often recommended. The physician will let you know if further testing is required. Call the doctor if you develop fever, chills, flank pain, inability to urinate, or blood in the urine. ANTIBIOTIC THERAPY: You have been given an antibiotic prescription. It's important that you take all the medication, unless instructed otherwise by your physician. Failure to complete the entire course can result in relapse of your condition. Common side effects of antibiotics include nausea, intestinal cramping, or diarrhea. Women may develop vaginal yeast infections, and babies can get yeast (thrush) in the mouth following the use of antibiotics. Contact your physician if you develop significant side effects from this medication. Allergy to this antibiotic can result in hives, wheezing, faintness, or itching. If symptoms of allergy occur, stop the medication and call the doctor. NITROFURANTOIN (MACRODANTIN, MACROBID): You have received a prescription for nitrofurantoin (Macrodantin). This antibiotic is used for urinary tract infections. Women who are or nursing should notify the physician before taking this medicine. If you have ever had a problem caused by this medication in the past, be sure the physician is aware of it. Common side effects of this medicine include nausea, vomiting, or decreased appetite. Notify your physician if these side effects become severe. Immediately stop this medicine and call the physician if you develop cough , shortness of breath, chest pain, weakness, jaundice (yellow color of the skin and whites of the eyes), or a skin rash. Vaginal Yeast Infection You have evidence of a yeast infection -- called "aly." A vaginal yeast infection often causes itching and discharge. While not dangerous, it can be very unpleasant. A yeast infection often follows the use of powerful antibiotics. It is more likely to occur in diabetics. The treatment now is usually a single pill of Diflucan, but also an antifungal cream or suppository may be used for a few days. You do not need to avoid sexual intercourse. Recurrences are common. You can make a recurrence less likely by wearing cotton underwear and avoiding tight clothing. For mild recurrences, you can try qghg-kni-ivbpdjr creams or suppositories that are made specifically for yeast. If the symptoms do not resolve, you should follow up for re-examination. Sometimes treatment of the sexual partner is necessary if infections are recurrent. Fluconazole Fluconazole (Diflucan) is an antifungal drug. It is useful for serious fungal infections, but is also excellent for oral or vaginal yeast infections. Diflucan interacts with some medicines. This is a concern if you are taking anticoagulants (such as Coumadin), phenytoin (Dilantin), cyclosporin, or oral hypoglycemics (such as tolbutamide, Orinase, glipizide, Glucotrol, glyburide, DiaBeta, Glynase, and Micronase). Be sure the doctor knows if you are taking one of these medicines. We don't know how Diflucan affects . If you are planning to become , discuss this with your doctor. Diflucan has few side effects. Minor side effects may include nausea, headache, or diarrhea. Call the doctor if you develop a skin rash, shortness of breath, or other new symptoms. Use some qyzk-gnn-okonxmu Monistat cream on your irritated rash twice a day. FOLLOW-UP CARE: If you have been referred to a physician for follow-up care, call the physician s office for an appointment as you were instructed or within the next two days. If you experience worsening or a significant change in your symptoms, notify the physician immediately or return to the Emergency Department at any time for re-evaluation. Prescriptions: Fluconazole [Diflucan] 150 mg PO DAILY #3 tablet Nitrofurantoin/Nitrofuran Mac [Macrobid 100 mg Capsule] 1 tab PO BID #10 capsule Forms: Return to Work Referrals: HEMANTH AL MD [Primary Care Provider] - Follow up as needed
[2017-11-22 18:16] VITALS: BP 144/79
== END 2017-11-22 18:19 | disposition home or self-care (01) ==
LOC: ER 13:29
DX: N39.0 Urinary tract infection, site not specified (principal); B37.3 Candidiasis of vulva and vagina; E03.9 Hypothyroidism, unspecified; I10 Essential (primary) hypertension; Z88.1 Allergy status to other antibiotic agents; Z88.5 Allergy status to narcotic agent
CPT/HCPCS: 99283; 86900; 86901; 36415; 87086; 86850; 83690; 85025; 85610; 85730; 82272; 87088; 80053; 81001; 87186; A9270; J8499

== ENCOUNTER → 2018-05-19 | Outpatient (CLI) | payer MEDICARE, MEDICAID ==
--- NOTE | 2018-05-19 15:20 | RADIOLOGY REPORT (SQ) ---
EXAM DESCRIPTION: BARIUM ENEMA W/AIR COMPLETED DATE/TIME: 05/19/2018 11:18 am REASON FOR STUDY: Z86.010 PERSONAL HISTORY OF COLONIC POLYPS Z86.010 PERSONAL HISTORY OF COLONIC PO LYPS COMPARISON: None. FLUOROSCOPY TIME: 3.1 minutes 32 images saved to PACS. TECHNIQUE: Following retrograde filling of the colon with barium and air, fluoroscopic spot and over head imaging of the colon was obtained and saved to PACS. LIMITATIONS: None. FINDINGS: STITCHDOWN TOE FORMER KUB: Normal abdominal film with adequate bowel prep. CECUM: Normal mucosa without intraluminal filling defects, intrinsic or extrinsic masses, or lesions. ASCENDING COLON: Normal mucosa without intraluminal filling defects, intrinsic or extrinsic masses, o r lesions. TRANSVERSE COLON: Redundant transverse colon. Normal mucosa without intraluminal filling defects, int rinsic or extrinsic masses, or lesions. DESCENDING COLON: Normal mucosa without intraluminal filling defects, intrinsic or extrinsic masses, or lesions. SIGMOID COLON: Redundant sigmoid colon. Normal mucosa without intraluminal filling defects, intrinsic or extrinsic masses, or lesions. RECTUM: Normal mucosa without intraluminal filling defects, intrinsic or extrinsic masses, or lesions . POST EVAC: Near complete evacuation of barium with no additional findings. OTHER: Scattered colonic diverticula. IMPRESSION: Unremarkable air-contrast barium enema without evidence of high-grade stricture, large i ntraluminal lesion or extrinsic mass effect. Scattered colonic diverticula. COMMENT: Quality ID 145: Final reports for procedures using fluoroscopy that document radiation exp osure indices, or exposure time and number of fluorographic images (if radiation exposure indices are not available) TECHNICAL DOCUMENTATION: JOB ID: [id number] [employer]- All Rights Reserved Reading location - IP/workstation name: [email or web address]
== END ==
LOC: RAD 09:45
PROVIDERS: ATTEND Internal Medicine Gastroenterology
DX: K31.84 Gastroparesis (principal); K57.30 Diverticulosis of large intestine without perforation or abscess without bleeding; Z86.010 Personal history of colon polyps
CPT/HCPCS: 74280

== ENCOUNTER → 2018-08-06 | Outpatient (CLI) | payer MEDICARE, MEDICAID ==
--- NOTE | 2018-08-06 15:30 | NEURO WORKBENCH EEG REPORT ---
EEG Report Please see the scanned original report from 08/06/2018 at 1531h [facility]
--- NOTE | 2018-08-06 15:36 | NEURO WORKBENCH EEG REPORT ---
Please refer to signed report from today 08/06/2018 at 1530h. [facility]
== END ==
LOC: NEURO 09:09
PROVIDERS: ATTEND Internal Medicine
DX: R55 Syncope and collapse (principal)
CPT/HCPCS: 95819

== ENCOUNTER → 2018-11-11 | Outpatient (CLI) | payer MEDICARE, MEDICAID ==
--- NOTE | 2018-11-11 15:12 | WOMENS IMAGING REPORT ---
EXAM DESCRIPTION: BILAT SCREENING MAMMO W/CAD COMPLETED DATE/TIME: 11/11/2018 2:59 pm REASON FOR STUDY: Z12.31 SCREENING MAMMO Z12.31 ENCNTR SCREEN MAMMOGRAM FOR MALIGNANT NEOPLASM OF B RE COMPARISON: 2014 to 2017 EXAM PARAMETERS: Standard craniocaudal and mediolateral oblique views of each breast recorded using digital acquisition. Read with the assistance of CAD. .[facility] - [employer]uffer Version 9.2 LIMITATIONS: None. FINDINGS: No suspicious masses, suspicious calcifications or architectural distortion. No areas of c oncern. IMPRESSION: Negative MAMMOGRAM. BIRADS 1 BREAST DENSITY: b. There are scattered areas of fibroglandular density. BIRAD: ASSESSMENT: 1 NEGATIVE RECOMMENDATION: ROUTINE SCREENING COMMENT: The patient has been notified of the results by letter per SA requirements. Additional no tification policies are in place for contacting patient with suspicious or incomplete findings. Quality ID #[id number]: The [employer] recommends an annual screening mammogram for women aged 40 years or over. This facility utilizes a reminder system to ensure that all patients receive reminder letters, and/or direct phone calls for appointments. This includes reminders for routine scr eening mammograms, diagnostic mammograms, or other Breast Imaging Interventions when appropriate. Th is patient will be placed in the appropriate reminder system. TECHNICAL DOCUMENTATION: FINDING NUMBER: (1) ASSESSMENT: (1) JOB ID: [id number] [employer]- All Rights Reserved Reading location - IP/workstation name: [email or web address]
== END ==
LOC: WI 13:55
PROVIDERS: ATTEND Internal Medicine
DX: Z12.31 Encounter for screening mammogram for malignant neoplasm of breast (principal)
CPT/HCPCS: 77067